=== PATIENT | female | born 1945 | race Hispanic/Latino ===

== ENCOUNTER 2019-04-18 16:14 | Emergency (ER) | payer OTHER ==
[~2019-04-18] VITALS: Ht 162.6 cm; Wt 69.9 kg
[2019-04-18 19:18] VITALS: BP 134/60
== END 2019-04-18 19:20 | disposition home or self-care (01) ==
LOC: ER 16:14
DX: R22.2 Localized swelling, mass and lump, trunk (principal); K46.9 Unspecified abdominal hernia without obstruction or gangrene
CPT/HCPCS: 99282

== ENCOUNTER 2019-06-19 18:09 | Emergency (ER) | payer OTHER ==
[~2019-06-19] VITALS: Ht 162.6 cm; Wt 69.9 kg
[2019-06-19 19:02] LABS: BASOPHILS % 0.4 % (0.0-1.0); EOSINOPHILS # (AUTO) 0.1 (0.0-0.4); EOSINOPHILS % 0.9 % (0.0-6.0); HEMATOCRIT 37.7 % (34.2-44.1); HEMOGLOBIN 12.2 g/dL (12.0-16.0); LYMPHOCYTES # (AUTO) 1.3 (1.0-3.2); LYMPHOCYTES % 24.6 % (18.0-39.1); MEAN CORPUSCULAR HEMOGLOBIN 27.3 pg (28-32); MEAN CORPUSCULAR HGB CONC 32.4 g/dL (31-35); MEAN CORPUSCULAR VOLUME 84.3 fL (81-99); MONOCYTES # (AUTO) 0.3 (0.2-0.8); MONOCYTES % 6.4 % (4.4-11.3); NEUTROPHILS # (AUTO) 3.6 (2.1-6.9); NEUTROPHILS % 67.3 % (38.7-80.0); PLATELET COUNT 203 x10e3/uL (140-360); RED BLOOD COUNT 4.47 x10e6/uL (3.6-5.1); RED CELL DISTRIBUTION WIDTH 14.5 % (11.7-14.4)
[2019-06-19 19:12] LABS: INR 0.96; PARTIAL THROMBOPLASTIN TIME 24.6 seconds (23.8-35.5); PROTHROMBIN TIME 13.3 seconds (11.9-14.5)
--- NOTE | 2019-06-19 19:20 | Diagnostic Imaging Report ---
Exam: Head CT without contrast History: Dizziness, nausea Comparison studies: None Technique: Axial images were obtained from the skull base to the vertex. Coronal and sagittal images reconstructed from the axial data. Dose modulation, iterative reconstruction, and/or weight based adjustment of the mA/kV was utilized to reduce the radiation dose to as low as reasonably achievable. Radiation dose: Total DLP: 921 mGy*cm. Estimated effective dose: DLP x 0.015 Intravenous contrast: None Findings: Scalp: No abnormalities. Bones: No fractures, blastic or lytic lesions. Brain sulci: Appropriate for age. Ventricles: Normal in size and configuration. No hydrocephalus. Extra-axial spaces: No masses, no fluid collection. Parenchyma: No abnormal densities. No masses, acute hemorrhage, acute or chronic vascular insults. Sellar/suprasellar region: Mostly CSF of sella, nonspecific finding. Craniocervical junction: Patent foramen magnum. No Chiari one malformation. Incidental findings: Atherosclerotic calcifications in the carotid siphons an in the left intradural vertebral artery. IMPRESSION: No acute abnormalities. Signed by: Dr. Jesus Daniels M.D. on 06/19/2019 7:17 PM
[2019-06-19 19:23] LABS: ALANINE AMINOTRANSFERASE 12 IU/L (0-55); ALBUMIN 3.4 g/dL (3.5-5.0); ALKALINE PHOSPHATASE 91 IU/L (40-150); ANION GAP 15.1 mmol/L (8-16); BLOOD UREA NITROGEN 12 mg/dL (7-26); BUN/CREATININE RATIO 16 (6-25); CARBON DIOXIDE 22 mmol/L (22-29); CHLORIDE 105 mmol/L (98-107); CREATINE KINASE 48 IU/L (29-168); CREATININE, SERUM 0.73 mg/dL (0.57-1.11); EST GLOMERULAR FILTRATION RATE > 60 ML/MIN (60-); GLUCOSE 107 mg/dL (74-118); MAGNESIUM 1.8 MG/DL (1.3-2.1); POTASSIUM 4.1 mmol/L (3.5-5.1); SODIUM 138 mmol/L (136-145)
[2019-06-19 19:42] LABS: BILIRUBIN,URINE NEGATIVE (NEGATIVE); CLARITY,URINE SL CLOUDY (CLEAR); COLOR,URINE YELLOW (YELLOW); KETONES,URINE NEGATIVE (NEGATIVE); LEUKOCYTE ESTERASE ,URINE TRACE (NEGATIVE); NITRITE,URINE NEGATIVE (NEGATIVE); PROTEIN,URINE DIPSTICK NEGATIVE (NEGATIVE); URINE UROBILINOGEN 0.2 mg/dL (0.2 - 1)
[2019-06-19 19:54] LABS: EPITHELIAL CELLS,URINE RARE /LPF; WBC,URINE (MAN) 0-5 /HPF (0-5)
--- NOTE | 2019-06-19 19:59 | Diagnostic Imaging Report ---
Examination: Single AP view of the chest. COMPARISON: None. INDICATION: Shortness of breath, dizziness, nausea IMPRESSION: 1. Lines and Tubes: None 2. Lungs are well-inflated and grossly clear. No consolidation or effusion. 3. Cardiomediastinal silhouette is normal. Pulmonary vasculature is normal. 4. No acute bony abnormalities. Signed by: Dr. Meño Cormier M.D. on 06/19/2019 7:55 PM
[2019-06-19] MEDS ORDERED: AZITHROMYCIN250 MG PO (20:34)
[2019-06-20 01:56] VITALS: BP 134/76
--- OUTSIDE RECORDS SUMMARY | 2019-06-27 11:32 | XMS REPORT ---
Author Author [facility] Address Unknown Phone Unavailable Care Team Providers Care Trimmer Climber Name Role Phone UNKNOWN, REFFERING PP Unavailable COLLIN CAPUTO Unavailable Unavailable Prosper BARRAZA Unavailable Unavailable GREENLANDIC, Yury MIRELES Unavailable Unavailable Problems This patient has no known problems. Allergies, Adverse Reactions, Alerts This patient has no known allergies or adverse reactions. Medications This patient has no known medications. Results Test Description Test Time Test Comments Text Results Atomic Results Result Comments CHEST SINGLE (PORTABLE) 2019-06-19 19:55:00 [place] [address] Patient Name: KATELIN GONZALES MR #: [id number] : 1945 Age/Sex: 74/F Req #: [id number] Adm Physician: Ordered by: YUNG RYAN PROCESS TRAINER Report #: [id number] Location: ER Room/Bed: Procedure: [id number] DX/CHEST SINGLE (PORTABLE) Exam Date: 06/19/19 Exam Time: 1850 REPORT STATUS: Signed Examination: Single AP view of the chest. COMPAR GARETH: None. INDICATION: Shortness of breath, dizziness, nausea IMPRESSION: 1. Lines and Tubes: None 2. Lungs are well-inflated and grossly clear. No consolidation or effusion. 3. Cardiomediastinal silhouette is normal. Pulmonary vasculature is normal. 4. No acute bony abnormalities. Signed by: Dr. Matthew Cormier M.D. on 06/19/2019 7:55 PM Dictated By: MATTHEW CORMIER MD 54 Transcribed By: JYOTI on 06/19/191954 COPY TO: YUNG RYAN NP CT BRAIN WO 2019-06-19 19:14:00 [place] [address] Patient Name: KATELIN GONZALES MR #: [id number] : 1945 Age/Sex: 74/F Req #: [id number] Adm Physician: Ordered by: YUNG RYAN NP Report #: [id number] Location: Room/Bed: Procedure: [id number] CT/CT BRAIN WO Exam Date: 06/19/19 Exam Time: 1850 REPORT STATUS: Signed Exam: Head CT without contrast History: Dizziness, nausea Comparison studies: None Technique: Axial images were obtained from the skull base to the vertex. Coronal and sagittal images reconstructed from the axial data. Dose modulation, iterative reconstruction, and/or weight based adjustment of the mA/kV was utilized to reduce the radiation dose to as low as reasonably achievable. Radiation dose: Total DLP: 921 mGy*cm. Estimated effective dose: DLP x 0.015 Intravenous contrast: None Findings: Scalp: No abnormalities. Bones: No fractures, blastic or lytic lesions. Brain sulci: Appropriate for age. Ventricles: Normal in size and configuration. No hydrocephalus. Extra-axial spaces: No masses, no fluid collection. Parenchyma: No abnormal densities. No masses, acute hemorrhage, acute or chronic vascular insults. Sellar/suprasellar region: Mostly CSF of sella, nonspecific finding. Craniocervical junction: Patent foramen magnum. No Chiari one malformation. Incidental findings: Athe rosclerotic calcifications in the carotid siphons an in the left intradural vertebral artery. IMPRESSION: No acute abnormalities. Signed by: Dr. Sharlene Daniels M.D. on 06/19/2019 7:17 PM Dictated By: SHARLENE DANIELS MD 16 Transcribed By: JYOTI on 06/19/191916 COPY TO: YUNG RYAN NP POC Glucose, Blood 2016-12-13 10:29:00 POC Glucose (test code=POCGLUC) 113 mg/dL 70-115 If you consider your patient critically ill, the Dylon Accu-Chek InformII metershould not be used for Glucose determinations.Draw a venous Glucose and send to the Main Lab for Analysis. POC Glucose, [id number] 16:48:00* Test Item Value Reference Range Comments POC Glucose (test code=POCGLUC) 119 mg/dL 70-115 Notify RN or MDIf you consider your patient critically ill, the Dylon Accu-Chek InformII metershould not be used for Glucose determinations.Draw a venous Glucose and send to the Main Lab for Analysis. POC Glucose, [id number] 08:08:00* Test Item Value Reference Range Comments POC Glucose (test code=POCGLUC) 105 mg/dL 70-115 Notify RN or MDIf you consider your patient critically ill, the Dylon Accu-Chek InformII metershould not be used for Glucose determinations.Draw a venous Glucose and send to the Main Lab for Analysis. POC Glucose, [id number] 20:18:00* Test Item Value Reference Range Comments POC Glucose (test code=POCGLUC) 102 mg/dL 70-115 Notify RN or MDIf you consider your patient critically ill, the Dylon Accu-Chek InformII metershould not be used for Glucose determinations.Draw a venous Glucose and send to the Main Lab for Analysis. POC Glucose, [id number] 11:14:00* Test Item Value Reference Range Comments POC Glucose (test code=POCGLUC) 122 mg/dL 70-115 Notify RN or MDIf you consider your patient critically ill, the Dylon Accu-Chek InformII metershould not be used for Glucose determinations.Draw a venous Glucose and send to the Main Lab for Analysis. POC Glucose, [id number] 07:31:00* Test Item Value Reference Range Comments POC Glucose (test code=POCGLUC) 93 mg/dL 70-115 If you consider your patient critically ill, the Dylon Accu-Chek InformII metershould not be used for Glucose determinations.Draw a venous Glucose and send to the Main Lab for Analysis. RBC, Crossmatch 00:13:00* Test Item Value Reference Range Comments Product 1 Code (test code=PRODCODE1) E4531 Unit 1 ID (test code=UNITID1) [id number] Unit 1 ABO (test code=UNITABO1) A Unit 1 Rh (test code=UNITRH1) POS Unit 1 Interp (test code=UNITINTERP1) Compatible Unit 1 Status (test code=UNITSTAT1) RE Product 2 Code (test code=PRODCODE2) E0336 Unit 2 ID (test code=UNITID2) [id number] Unit 2 ABO (test code=UNITABO2) A Unit 2 Rh (test code=UNITRH2) POS Unit 2 Interp (test code=UNITINTERP2) Compatible Unit 2 Status (test code=UNITSTAT2) RE POC Glucose, [id number] 21:23:00* Test Item Value Reference Range Comments POC Glucose (test code=POCGLUC) 98 mg/dL 70-115 If you consider your patient critically ill, the Dylon Accu-Chek InformII metershould not be used for Glucose determinations.Draw a venous Glucose and send to the Main Lab for Analysis. POC Glucose, [id number] 16:55:00* Test Item Value Reference Range Comments POC Glucose (test code=POCGLUC) 105 mg/dL 70-115 Notify RN or MDIf you consider your patient critically ill, the Dylon Accu-Chek InformII metershould not be used for Glucose determinations.Draw a venous Glucose and send to the Main Lab for Analysis. POC Glucose, [id number] 12:32:00* Test Item Value Reference Range Comments POC Glucose (test code=POCGLUC) 95 mg/dL 70-115 Notify RN or MDIf you consider your patient critically ill, the Dylon Accu-Chek InformII metershould not be used for Glucose determinations.Draw a venous Glucose and send to the Main Lab for Analysis. POC Glucose, [id number] 08:14:00* Test Item Value Reference Range Comments POC Glucose (test code=POCGLUC) 99 mg/dL 70-115 Notify RN or MDIf you consider your patient critically ill, the Dylon Accu-Chek InformII metershould not be used for Glucose determinations.Draw a venous Glucose and send to the Main Lab for Analysis. POC Glucose, [id number] 20:36:00* Test Item Value Reference Range Comments POC Glucose (test code=POCGLUC) 109 mg/dL 70-115 Notify RN or MDIf you consider your patient critically ill, the Dylon Accu-Chek InformII metershould not be used for Glucose determinations.Draw a venous Glucose and send to the Main Lab for Analysis. POC Glucose, [id number] 17:08:00* Test Item Value Reference Range Comments POC Glucose (test code=POCGLUC) 121 mg/dL 70-115 Notify RN or MDIf you consider your patient critically ill, the Dylon Accu-Chek InformII metershould not be used for Glucose determinations.Draw a venous Glucose and send to the Main Lab for Analysis. POC Glucose, [id number] 12:27:00* Test Item Value Reference Range Comments POC Glucose (test code=POCGLUC) 109 mg/dL 70-115 Notify RN or MDIf you consider your patient critically ill, the Dylon Accu-Chek InformII metershould not be used for Glucose determinations.Draw a venous Glucose and send to the Main Lab for Analysis. POC Glucose, [id number] 08:37:00* Test Item Value Reference Range Comments POC Glucose (test code=POCGLUC) 108 mg/dL 70-115 Notify RN or MDIf you consider your patient critically ill, the Dylon Accu-Chek InformII metershould not be used for Glucose determinations.Draw a venous Glucose and send to the Main Lab for Analysis. [id number] 07:44:00* Test Item Value Reference Range Comments Phosphorus (test code=PO4) 3.1 mg/dL 2.70-4.50 Basic Metabolic [id number] 07:43:00* Test Item Value Reference Range Comments Sodium (test code=NA) 137 mmol/L 135-145 Potassium (test code=K) 4.0 mmol/L 3.5-5.1 Chloride (test code=CL) 103 mmol/L 98-105 Carbon Dioxide (test code=CO2) 24 mmol/L 22-29 Glucose (test code=GLU) 118 mg/dL 70-115 Blood Urea Nitrogen (test code=BUN) 10 mg/dL 8-23 Creatinine (test code=CREAT) 0.5 mg/dL 0.5-0.9 Calcium (test code=CA) 8.2 mg/dL 8.3-10.5 BUN/Creatinine Ratio (test code=BCRATIO) 20.0 Anion Gap (test code=AGAP) 10 mmol/L 7-16 Estimated GFR (test code=GFR) >60 mL/min/1.73m2 eGFR (estimated Glomerular Filtration Rate) is an estimated value,calculated from the patient's serum creatinine using the MDRD equation.It is NOT the patient's actual GFR. The eGFR provides a more clinicallyuseful measure of kidney disease than serum creatinine alone.This calculation takes sex and race into account, if the informationis provided. If the race is not provided, and the patient isAfrican-Citizen Of [place], multiply by 1.212. If sex is not provided, and thepatient is female, multiply by 0.742. Results for patients <18 years ofage have not been validated by the MDRD study and should be interpretedwith caution.eGFR Result Interpretation:eGFR > or=60 is in the Normal RangeeGFR < 60 may mean kidney diseaseeGFR < 15 may mean kidney failureRanges recommended by the National Kidney Foundat ion,http://nkdep.nih.gov Magnesium, [id number] 07:43:00* Test Item Value Reference Range Comments Magnesium (test code=MG) 1.8 mg/dL 1.7-2.5 CBC with [id number] 07:38:00* Test Item Value Reference Range Comments WBC (test code=WBC) 5.7 K/cumm 4.4-10.5 RBC (test code=RBC) 4.09 M/cumm 3.75-5.20 Hemoglobin (test code=HGB) 10.6 gm/dL 12.2-14.8 Hematocrit (test code=HCT) 34.9 % 36.5-44.4 MCV (test code=MCV) 85.4 fL 80-100 MCH (test code=MCH) 25.9 pg 27.0-32.5 MCHC (test code=MCHC) 30.3 g/dL 32.0-37.5 RDW (test code=RDW) 15.8 % 11.5-14.5 Platelet Count (test code=PLTCT) 306 K/cumm 140-440 MPV (test code=MPV) 8.2 fL Diff Method (test code=DIFFM) Auto Neutrophil (test code=NEUT) 68.4 % 36-70 Lymphocyte (test code=LYMPH) 21.2 % 12-44 Monocyte (test code=MONO) 6.6 % 0-11 Eosinophil (test code=EOS) 3.5 % 0-7 Basophil (test code=BASO) 0.3 % 0-2 Neutro Abs (test code=ANEUT) 3.9 K/cumm 1.6-7.4 Lymph Abs (test code=ALYMPH) 1.2 K/cumm 0.5-4.6 Ransom Abs (test code=AMONO) 0.4 K/cumm 0.0-1.2 Eos Abs (test code=AEOS) 0.20 K/cumm 0.00-0.74 Baso Abs (test code=ABASO) 0.0 K/cumm 0.00-0.21 Hypochromic (test code=HYPO) Slight POC Glucose, [id number] 20:59:00* Test Item Value Reference Range Comments POC Glucose (test code=POCGLUC) 109 mg/dL 70-115 Notify RN or MDIf you consider your patient critically ill, the Dylon Accu-Chek InformII metershould not be used for Glucose determinations.Draw a venous Glucose and send to the Main Lab for Analysis. POC Glucose, [id number] 16:58:00* Test Item Value Reference Range Comments POC Glucose (test code=POCGLUC) 106 mg/dL 70-115 Notify RN or MDIf you consider your patient critically ill, the Dylon Accu-Chek InformII metershould not be used for Glucose determinations.Draw a venous Glucose and send to the Main Lab for Analysis. POC Glucose, [id number] 12:30:00* Test Item Value Reference Range Comments POC Glucose (test code=POCGLUC) 108 mg/dL 70-115 Notify RN or MDIf you consider your patient critically ill, the Dylon Accu-Chek InformII metershould not be used for Glucose determinations.Draw a venous Glucose and send to the Main Lab for Analysis. POC Glucose, [id number] 08:36:00* Test Item Value Reference Range Comments POC Glucose (test code=POCGLUC) 107 mg/dL 70-115 Notify RN or MDIf you consider your patient critically ill, the Dylon Accu-Chek InformII metershould not be used for Glucose determinations.Draw a venous Glucose and send to the Main Lab for Analysis. Antibody Screen - [id number] 16:28:00* Test Item Value Reference Range Comments Antibody Screen (test code=ABSCR) Negative Blood Type and [id number] 16:28:00* Test Item Value Reference Range Comments ABO type (test code=ABO) A Rh Type (test code=RH) Positive CBC with [id number] 15:43:00* Test Item Value Reference Range Comments WBC (test code=WBC) 6.8 K/cumm 4.4-10.5 RBC (test code=RBC) 5.15 M/cumm 3.75-5.20 Hemoglobin (test code=HGB) 13.0 gm/dL 12.2-14.8 Hematocrit (test code=HCT) 42.3 % 36.5-44.4 MCV (test code=MCV) 82.1 fL 80-100 MCH (test code=MCH) 25.2 pg 27.0-32.5 MCHC (test code=MCHC) 30.7 g/dL 32.0-37.5 RDW (test code=RDW) 16.2 % 11.5-14.5 Platelet Count (test code=PLTCT) 281 K/cumm 140-440 MPV (test code=MPV) 8.6 fL Diff Method (test code=DIFFM) Auto Neutrophil (test code=NEUT) 78.0 % 36-70 Lymphocyte (test code=LYMPH) 13.3 % 12-44 Monocyte (test code=MONO) 6.7 % 0-11 Eosinophil (test code=EOS) 1.7 % 0-7 Basophil (test code=BASO) 0.3 % 0-2 Neutro Abs (test code=ANEUT) 5.3 K/cumm 1.6-7.4 Lymph Abs (test code=ALYMPH) 0.9 K/cumm 0.5-4.6 Ransom Abs (test code=AMONO) 0.5 K/cumm 0.0-1.2 Eos Abs (test code=AEOS) 0.12 K/cumm 0.00-0.74 Baso Abs (test code=ABASO) 0.0 K/cumm 0.00-0.21 Hypochromic (test code=HYPO) Slight Prothrombin [id number] 15:43:00* Test Item Value Reference Range Comments PT (test code=PT) 13.30 seconds 9.78-13.35 INR (test code=INR) 1.17 Ratio 0.6-1.2 Partial Thromboplastin [id number] 15:43:00* Test Item Value Reference Range Comments aPTT (test code=PTT) 26.80 seconds 24.39-37.25 Comprehensive Metabolic [id number] 15:43:00* Test Item Value Reference Range Comments Sodium (test code=NA) 137 mmol/L 135-145 Potassium (test code=K) 3.9 mmol/L 3.5-5.1 Chloride (test code=CL) 98 mmol/L 98-105 Carbon Dioxide (test code=CO2) 25 mmol/L 22-29 Glucose (test code=GLU) 107 mg/dL 70-115 Blood Urea Nitrogen (test code=BUN) 13 mg/dL 8-23 Creatinine (test code=CREAT) 0.5 mg/dL 0.5-0.9 Calcium (test code=CA) 8.8 mg/dL 8.3-10.5 Prot Total (test code=TP) 6.6 g/dL 6.4-8.3 Albumin (test code=ALB) 3.3 g/dL 3.5-5.2 A/G Ratio (test code=AGRATIO) 1.0 Ratio Globulin (test code=GLOB) 3.3 2.9-3.1 Bili Total (test code=TBIL) 0.4 mg/dL 0.1-0.9 Alk Phos (test code=APHOS) 84 U/L 35-104 AST (test code=AST) 15 U/L 1-32 ALT (test code=ALT) 14 U/L 1-33 BUN/Creatinine Ratio (test code=BCRATIO) 26.0 Anion Gap (test code=AGAP) 14 mmol/L 7-16 Estimated GFR (test code=GFR) >60 mL/min/1.73m2 eGFR (estimated Glomerular Filtration Rate) is an estimated value,calculated from the patient's serum creatinine using the MDRD equation.It is NOT the patient's actual GFR. The eGFR provides a more clinicallyuseful measure of kidney disease than serum creatinine alone.This calculation takes sex and race into account, if the informationis provided. If the race is not provided, and the patient isAfrican-Citizen Of [place], multiply by 1.212. If sex is not provided, and thepatient is female, multiply by 0.742. Results for patients <18 years ofage have not been validated by the MDRD study and should be interpretedwith caution.eGFR Result Interpretation:eGFR > or=60 is in the Normal RangeeGFR < 60 may mean kidney diseaseeGFR < 15 may mean kidney failureRanges recommended by the National Kidney Foundat ion,http://nkdep.nih.gov [id number] 15:43:00* Test Item Value Reference Range Comments Lipase (test code=LIP) 19 U/L 13-60 Eaa-[id number] 15:43:00* Test Item Value Reference Range Comments NT ProBnp (test code=PBNP) 76 pg/mL 0-124 CK [id number] 15:43:00* Test Item Value Reference Range Comments CK (test code=CK) 20 U/L 26-192 CKMB (test code=CKMB) 1.0 ng/mL 0.0-2.8 CKMB% (test code=CKMBP) 5.0 % 0.0-3.4 CK [id number] 15:43:00* Test Item Value Reference Range Comments CK (test code=CK) 20 U/L 26-192 Troponin [id number] 15:43:00* Test Item Value Reference Range Comments Troponin T (test code=MIRTA) 0.010 ng/mL 0.000-0.090 Urinalysis [id number] 15:43:00* Test Item Value Reference Range Comments Color (test code=COLOR) Hilda Yellow,Straw,Pl yellow Clarity (test code=CLAR) Clear Clear Specific Beasley (test code=SPGR) 1.029 1.001-1.035 pH (test code=PH) 6.5 5.0-9.0 Ketone (test code=KET) 150 mg/dL Negative Glucose (test code=GLUCUR) Negative mg/dL Negative Protein (test code=PROT) 25 mg/dL Negative Bilirubin (test code=BILI) 1+ mg/dL Negative Occult Blood (test code=UDOB) Negative Negative Urobilinogen (test code=UROB) 8.0 mg/dL 0.2-1.0 Nitrite (test code=NIT) Negative Negative Leuk Esterase (test code=LEUK) Negative Negative Ictotest (test code=ICTOTEST) Confirmed Negative Negative,Confirmed Negative Micros Exam (test code=MEXAM) Indicated Epithelial Cells (test code=EPI) 3-5 /LPF 0-30 WBC, Urine (test code=UWBC) 0-5 /HPF 0-5 RBC, Urine (test code=URBC) None Seen /HPF 0-5 Mucous, Urine (test code=UMUC) Trace /HPF Bacteria (test code=BACT) Few /HPF Blood Gas+Lytes+Glu+Ca+Hgb+Hct+[id number] 13:34:00* Test Item Value Reference Range Comments pH, Blood Gas (test code=BGPH) 7.510 pH Units 7.35-7.45 pCO2 (test code=PCO2) 32.6 mm Hg 35-45 pO2 (test code=PO2) 77.0 mm Hg 80-100 Bicarbonate (test code=HCO3) 26.0 mmol/L 22.0-26.0 Base Excess (test code=BE) 2.8 mmol/L O2 Saturation (test code=O2SAT) 96.5 % 80.0-100.0 Sodium, Blood Gas (test code=BGNA) 138 mmol/L 135-145 Potassium, Blood Gas (test code=BGK) 3.6 mmol/L 3.5-4.5 Chloride, Blood Gas (test code=BGCL) 104 mmol/L 98-105 Calcium, Ionized, Blood Gas (test code=BGCAI) 1.15 mmol/L 1.00-1.50 Glucose, Blood Gas (test code=BGGLU) 109 mg/dL 75-115 tHB (test code=RTHB) 11.5 gm/dL 12.2-17.4 Hematocrit, Blood Gas (test code=BGHCT) 35.2 % 34.0-52.0 O2Hb (test code=RO2HB) 95 80-100 Carboxyhemoglobin (test code=CARHGB) 1.1 % 0.0-20.0 Methemoglobin (test code=METHGB) 1.0 % 0.0-20.0 FIO2 % (test code=FIO2) 21 % Patient Temperature (test code=PTTEMP) 37.0 Degrees Celcius Comment (test code=COMMENT) 21%alokveriviedrblvtovernmd@1332rg Puncture Site (test code=PUNSITE) Radial. R Drawing Tech ID (test code=DRAWTECH) dagoberto iPAP (test code=IPAP) 0 cmH2O Respiratory Rate (test code=RESP RATE) 20 Lactic Acid, Blood Gas (test code=BGLA) 0.8 mmol/L Magnesium, [id number] 06:09:00* Test Item Value Reference Range Comments Magnesium (test code=MG) 1.7 mg/dL 1.7-2.5 Basic Metabolic [id number] 06:09:00* Test Item Value Reference Range Comments Sodium (test code=NA) 135 mmol/L 135-145 Potassium (test code=K) 3.9 mmol/L 3.5-5.1 Chloride (test code=CL) 100 mmol/L 98-105 Carbon Dioxide (test code=CO2) 24 mmol/L 22-29 Glucose (test code=GLU) 99 mg/dL 70-115 Blood Urea Nitrogen (test code=BUN) 10 mg/dL 8-23 Creatinine (test code=CREAT) 0.5 mg/dL 0.5-0.9 Calcium (test code=CA) 8.6 mg/dL 8.3-10.5 BUN/Creatinine Ratio (test code=BCRATIO) 20.0 Anion Gap (test code=AGAP) 11 mmol/L 7-16 Estimated GFR (test code=GFR) >60 mL/min/1.73m2 eGFR (estimated Glomerular Filtration Rate) is an estimated value,calculated from the patient's serum creatinine using the MDRD equation.It is NOT the patient's actual GFR. The eGFR provides a more clinicallyuseful measure of kidney disease than serum creatinine alone.This calculation takes sex and race into account, if the informationis provided. If the race is not provided, and the patient isAfrican-Citizen Of [place], multiply by 1.212. If sex is not provided, and thepatient is female, multiply by 0.742. Results for patients <18 years ofage have not been validated by the MDRD study and should be interpretedwith caution.eGFR Result Interpretation:eGFR > or=60 is in the Normal RangeeGFR < 60 may mean kidney diseaseeGFR < 15 may mean kidney failureRanges recommended by the National Kidney Foundat ion,http://nkdep.nih.gov [id number] 06:09:00* Test Item Value Reference Range Comments Phosphorus (test code=PO4) 4.2 mg/dL 2.70-4.50 CBC with [id number] 05:53:00* Test Item Value Reference Range Comments WBC (test code=WBC) 6.4 K/cumm 4.4-10.5 RBC (test code=RBC) 4.18 M/cumm 3.75-5.20 Hemoglobin (test code=HGB) 10.7 gm/dL 12.2-14.8 Hematocrit (test code=HCT) 33.7 % 36.5-44.4 MCV (test code=MCV) 80.8 fL 80-100 MCH (test code=MCH) 25.6 pg 27.0-32.5 MCHC (test code=MCHC) 31.7 g/dL 32.0-37.5 RDW (test code=RDW) 15.6 % 11.5-14.5 Platelet Count (test code=PLTCT) 271 K/cumm 140-440 MPV (test code=MPV) 7.2 fL Diff Method (test code=DIFFM) Auto Neutrophil (test code=NEUT) 73.9 % 36-70 Lymphocyte (test code=LYMPH) 15.6 % 12-44 Monocyte (test code=MONO) 8.0 % 0-11 Eosinophil (test code=EOS) 2.3 % 0-7 Basophil (test code=BASO) 0.2 % 0-2 Neutro Abs (test code=ANEUT) 4.7 K/cumm 1.6-7.4 Lymph Abs (test code=ALYMPH) 1.0 K/cumm 0.5-4.6 Ransom Abs (test code=AMONO) 0.5 K/cumm 0.0-1.2 Eos Abs (test code=AEOS) 0.15 K/cumm 0.00-0.74 Baso Abs (test code=ABASO) 0.0 K/cumm 0.00-0.21 Magnesium, [id number] 07:23:00* Test Item Value Reference Range Comments Magnesium (test code=MG) 1.7 mg/dL 1.7-2.5 Basic Metabolic [id number] 07:23:00* Test Item Value Reference Range Comments Sodium (test code=NA) 139 mmol/L 135-145 Potassium (test code=K) 4.1 mmol/L 3.5-5.1 Chloride (test code=CL) 105 mmol/L 98-105 Carbon Dioxide (test code=CO2) 23 mmol/L 22-29 Glucose (test code=GLU) 150 mg/dL 70-115 Blood Urea Nitrogen (test code=BUN) 7 mg/dL 8-23 Creatinine (test code=CREAT) 0.4 mg/dL 0.5-0.9 Calcium (test code=CA) 8.7 mg/dL 8.3-10.5 BUN/Creatinine Ratio (test code=BCRATIO) 17.5 Anion Gap (test code=AGAP) 11 mmol/L 7-16 Estimated GFR (test code=GFR) >60 mL/min/1.73m2 eGFR (estimated Glomerular Filtration Rate) is an estimated value,calculated from the patient's serum creatinine using the MDRD equation.It is NOT the patient's actual GFR. The eGFR provides a more clinicallyuseful measure of kidney disease than serum creatinine alone.This calculation takes sex and race into account, if the informationis provided. If the race is not provided, and the patient isAfrican-Citizen Of [place], multiply by 1.212. If sex is not provided, and thepatient is female, multiply by 0.742. Results for patients <18 years ofage have not been validated by the MDRD study and should be interpretedwith caution.eGFR Result Interpretation:eGFR > or=60 is in the Normal RangeeGFR < 60 may mean kidney diseaseeGFR < 15 may mean kidney failureRanges recommended by the National Kidney Foundat ion,http://nkdep.nih.gov CBC with Pkhbkkhuwlkz8024-15-39 07:12:00* Test Item Value Reference Range Comments WBC (test code=WBC) 12.0 K/cumm 4.4-10.5 RBC (test code=RBC) 4.17 M/cumm 3.75-5.20 Hemoglobin (test code=HGB) 11.0 gm/dL 12.2-14.8 Hematocrit (test code=HCT) 34.4 % 36.5-44.4 MCV (test code=MCV) 82.6 fL 80-100 MCH (test code=MCH) 26.4 pg 27.0-32.5 MCHC (test code=MCHC) 31.9 g/dL 32.0-37.5 RDW (test code=RDW) 16.0 % 11.5-14.5 Platelet Count (test code=PLTCT) 295 K/cumm 140-440 MPV (test code=MPV) 8.7 fL Diff Method (test code=DIFFM) Auto Neutrophil (test code=NEUT) 85.7 % 36-70 Lymphocyte (test code=LYMPH) 8.8 % 12-44 Monocyte (test code=MONO) 5.2 % 0-11 Eosinophil (test code=EOS) 0.2 % 0-7 Basophil (test code=BASO) 0.2 % 0-2 Neutro Abs (test code=ANEUT) 10.3 K/cumm 1.6-7.4 Lymph Abs (test code=ALYMPH) 1.1 K/cumm 0.5-4.6 Ransom Abs (test code=AMONO) 0.6 K/cumm 0.0-1.2 Eos Abs (test code=AEOS) 0.02 K/cumm 0.00-0.74 Baso Abs (test code=ABASO) 0.0 K/cumm 0.00-0.21 Magnesium, [id number] 06:39:00* Test Item Value Reference Range Comments Magnesium (test code=MG) 1.9 mg/dL 1.7-2.5 Basic Metabolic [id number] 06:39:00* Test Item Value Reference Range Comments Sodium (test code=NA) 139 mmol/L 135-145 Potassium (test code=K) 3.9 mmol/L 3.5-5.1 Chloride (test code=CL) 103 mmol/L 98-105 Carbon Dioxide (test code=CO2) 21 mmol/L 22-29 Glucose (test code=GLU) 99 mg/dL 70-115 Blood Urea Nitrogen (test code=BUN) 8 mg/dL 8-23 Creatinine (test code=CREAT) 0.5 mg/dL 0.5-0.9 Calcium (test code=CA) 8.7 mg/dL 8.3-10.5 BUN/Creatinine Ratio (test code=BCRATIO) 16.0 Anion Gap (test code=AGAP) 15 mmol/L 7-16 Estimated GFR (test code=GFR) >60 mL/min/1.73m2 eGFR (estimated Glomerular Filtration Rate) is an estimated value,calculated from the patient's serum creatinine using the MDRD equation.It is NOT the patient's actual GFR. The eGFR provides a more clinicallyuseful measure of kidney disease than serum creatinine alone.This calculation takes sex and race into account, if the informationis provided. If the race is not provided, and the patient isAfrican-Citizen Of [place], multiply by 1.212. If sex is not provided, and thepatient is female, multiply by 0.742. Results for patients <18 years ofage have not been validated by the MDRD study and should be interpretedwith caution.eGFR Result Interpretation:eGFR > or=60 is in the Normal RangeeGFR < 60 may mean kidney diseaseeGFR < 15 may mean kidney failureRanges recommended by the National Kidney Foundat ion,http://nkdep.nih.gov [id number] 06:39:00* Test Item Value Reference Range Comments Phosphorus (test code=PO4) 4.3 mg/dL 2.70-4.50 CBC with [id number] 06:07:00* Test Item Value Reference Range Comments WBC (test code=WBC) 4.7 K/cumm 4.4-10.5 RBC (test code=RBC) 4.23 M/cumm 3.75-5.20 Hemoglobin (test code=HGB) 10.8 gm/dL 12.2-14.8 Hematocrit (test code=HCT) 35.2 % 36.5-44.4 MCV (test code=MCV) 83.3 fL 80-100 MCH (test code=MCH) 25.5 pg 27.0-32.5 MCHC (test code=MCHC) 30.6 g/dL 32.0-37.5 RDW (test code=RDW) 15.9 % 11.5-14.5 Platelet Count (test code=PLTCT) 264 K/cumm 140-440 MPV (test code=MPV) 8.4 fL Diff Method (test code=DIFFM) Auto Neutrophil (test code=NEUT) 63.4 % 36-70 Lymphocyte (test code=LYMPH) 20.3 % 12-44 Monocyte (test code=MONO) 12.1 % 0-11 Eosinophil (test code=EOS) 3.8 % 0-7 Basophil (test code=BASO) 0.4 % 0-2 Neutro Abs (test code=ANEUT) 3.0 K/cumm 1.6-7.4 Lymph Abs (test code=ALYMPH) 1.0 K/cumm 0.5-4.6 Ransom Abs (test code=AMONO) 0.6 K/cumm 0.0-1.2 Eos Abs (test code=AEOS) 0.18 K/cumm 0.00-0.74 Baso Abs (test code=ABASO) 0.0 K/cumm 0.00-0.21 Hypochromic (test code=HYPO) Slight Blood Type and [id number] 14:54:00* Test Item Value Reference Range Comments ABO type (test code=ABO) A Rh Type (test code=RH) Positive Antibody Screen - [id number] 14:54:00* Test Item Value Reference Range Comments Antibody Screen (test code=ABSCR) Negative Partial Thromboplastin [id number] 13:02:00* Test Item Value Reference Range Comments aPTT (test code=PTT) 32.20 seconds 24.39-37.25 Prothrombin [id number] 11:57:00* Test Item Value Reference Range Comments PT (test code=PT) 13.10 seconds 9.78-13.35 INR (test code=INR) 1.15 Ratio 0.6-1.2 [id number] 11:26:00* Test Item Value Reference Range Comments Phosphorus (test code=PO4) 3.8 mg/dL 2.70-4.50 Basic Metabolic [id number] 11:26:00* Test Item Value Reference Range Comments Sodium (test code=NA) 135 mmol/L 135-145 Potassium (test code=K) 4.0 mmol/L 3.5-5.1 Chloride (test code=CL) 100 mmol/L 98-105 Carbon Dioxide (test code=CO2) 22 mmol/L 22-29 Glucose (test code=GLU) 84 mg/dL 70-115 Blood Urea Nitrogen (test code=BUN) 12 mg/dL 8-23 Creatinine (test code=CREAT) 0.5 mg/dL 0.5-0.9 Calcium (test code=CA) 8.7 mg/dL 8.3-10.5 BUN/Creatinine Ratio (test code=BCRATIO) 24.0 Anion Gap (test code=AGAP) 13 mmol/L 7-16 Estimated GFR (test code=GFR) >60 mL/min/1.73m2 eGFR (estimated Glomerular Filtration Rate) is an estimated value,calculated from the patient's serum creatinine using the MDRD equation.It is NOT the patient's actual GFR. The eGFR provides a more clinicallyuseful measure of kidney disease than serum creatinine alone.This calculation takes sex and race into account, if the informationis provided. If the race is not provided, and the patient isAfrican-Citizen Of [place], multiply by 1.212. If sex is not provided, and thepatient is female, multiply by 0.742. Results for patients <18 years ofage have not been validated by the MDRD study and should be interpretedwith caution.eGFR Result Interpretation:eGFR > or=60 is in the Normal RangeeGFR < 60 may mean kidney diseaseeGFR < 15 may mean kidney failureRanges recommended by the National Kidney Foundat ion,http://nkdep.nih.gov Magnesium, [id number] 11:26:00* Test Item Value Reference Range Comments Magnesium (test code=MG) 1.9 mg/dL 1.7-2.5 CBC with [id number] 11:06:00* Test Item Value Reference Range Comments WBC (test code=WBC) 6.4 K/cumm 4.4-10.5 RBC (test code=RBC) 4.19 M/cumm 3.75-5.20 Hemoglobin (test code=HGB) 11.0 gm/dL 12.2-14.8 Hematocrit (test code=HCT) 34.4 % 36.5-44.4 MCV (test code=MCV) 82.2 fL 80-100 MCH (test code=MCH) 26.2 pg 27.0-32.5 MCHC (test code=MCHC) 31.9 g/dL 32.0-37.5 RDW (test code=RDW) 15.9 % 11.5-14.5 Platelet Count (test code=PLTCT) 274 K/cumm 140-440 MPV (test code=MPV) 8.8 fL Diff Method (test code=DIFFM) Auto Neutrophil (test code=NEUT) 66.3 % 36-70 Lymphocyte (test code=LYMPH) 22.3 % 12-44 Monocyte (test code=MONO) 7.9 % 0-11 Eosinophil (test code=EOS) 3.1 % 0-7 Basophil (test code=BASO) 0.4 % 0-2 Neutro Abs (test code=ANEUT) 4.2 K/cumm 1.6-7.4 Lymph Abs (test code=ALYMPH) 1.4 K/cumm 0.5-4.6 Ransom Abs (test code=AMONO) 0.5 K/cumm 0.0-1.2 Eos Abs (test code=AEOS) 0.20 K/cumm 0.00-0.74 Baso Abs (test code=ABASO) 0.0 K/cumm 0.00-0.21 CK [id number] 07:00:00* Test Item Value Reference Range Comments CK (test code=CK) na U/L 26-192 CKMB (test code=CKMB) <1.0 ng/mL 0.0-2.8 CKMB% (test code=CKMBP) No Calc % 0.0-3.4 Unable to calculate due to one or more values out of test measurement range. Troponin [id number] 06:23:00* Test Item Value Reference Range Comments Troponin T (test code=MIRTA) <0.010 ng/mL 0.000-0.090 Thyroid Stimulating Hormone (TSH)2016-11-20 06:23:00* Test Item Value Reference Range Comments TSH (test code=TSH) 2.08 mIU/mL 0.270-4.200 Basic Metabolic [id number] 06:19:00* Test Item Value Reference Range Comments Sodium (test code=NA) 137 mmol/L 135-145 Potassium (test code=K) 4.1 mmol/L 3.5-5.1 Chloride (test code=CL) 105 mmol/L 98-105 Carbon Dioxide (test code=CO2) 23 mmol/L 22-29 Glucose (test code=GLU) 93 mg/dL 70-115 Blood Urea Nitrogen (test code=BUN) 14 mg/dL 8-23 Creatinine (test code=CREAT) 0.5 mg/dL 0.5-0.9 Calcium (test code=CA) 8.5 mg/dL 8.3-10.5 BUN/Creatinine Ratio (test code=BCRATIO) 28.0 Anion Gap (test code=AGAP) 9 mmol/L 7-16 Estimated GFR (test code=GFR) >60 mL/min/1.73m2 eGFR (estimated Glomerular Filtration Rate) is an estimated value,calculated from the patient's serum creatinine using the MDRD equation.It is NOT the patient's actual GFR. The eGFR provides a more clinicallyuseful measure of kidney disease than serum creatinine alone.This calculation takes sex and race into account, if the informationis provided. If the race is not provided, and the patient isAfrican-Citizen Of [place], multiply by 1.212. If sex is not provided, and thepatient is female, multiply by 0.742. Results for patients <18 years ofage have not been validated by the MDRD study and should be interpretedwith caution.eGFR Result Interpretation:eGFR > or=60 is in the Normal RangeeGFR < 60 may mean kidney diseaseeGFR < 15 may mean kidney failureRanges recommended by the National Kidney Foundat ion,http://nkdep.nih.gov Lipid [id number] 06:19:00* Test Item Value Reference Range Comments Cholesterol (test code=CHOL) 108 mg/dL 0-200 Triglycerides (test code=TRIG) 54 mg/dL 9-200 HDL (test code=HDL) 45 mg/dL 50-60 Chol/HDL (test code=CHOLPHDL) 2.4 Ratio 0.0-4.4 LDL, Calculated (test code=LDLC) 52 0-130 (NOTE)RISK OF HEART DISEASEPublished by Citizen Of [place] Heart AssociationAnalyte Optimal Boderline Increased RiskCHOL <200 200-239 >240TRIG <150 150- 199 >200HDL Male: >60 <40HDL Female: >60 <50LDL <100 130-159 >160LDL NEAR OPTIMAL IS 100-129 VLDL (test code=VLDL) 11 mg/dL 5-40 LDL/HDL (test code=LDLPHDL) 1 Magnesium, [id number] 06:19:00* Test Item Value Reference Range Comments Magnesium (test code=MG) 1.9 mg/dL 1.7-2.5 [id number] 06:19:00* Test Item Value Reference Range Comments Phosphorus (test code=PO4) 3.7 mg/dL 2.70-4.50 Glycosylated [id number] 06:15:00* Test Item Value Reference Range Comments HBA1c (test code=HBA1C) 5.0 % 4.8-5.9 CBC with [id number] 06:12:00* Test Item Value Reference Range Comments WBC (test code=WBC) 4.7 K/cumm 4.4-10.5 RBC (test code=RBC) 4.12 M/cumm 3.75-5.20 Hemoglobin (test code=HGB) 10.3 gm/dL 12.2-14.8 Hematocrit (test code=HCT) 33.6 % 36.5-44.4 MCV (test code=MCV) 81.7 fL 80-100 MCH (test code=MCH) 25.0 pg 27.0-32.5 MCHC (test code=MCHC) 30.7 g/dL 32.0-37.5 RDW (test code=RDW) 14.8 % 11.5-14.5 Platelet Count (test code=PLTCT) 253 K/cumm 140-440 MPV (test code=MPV) 8.3 fL Diff Method (test code=DIFFM) Auto Neutrophil (test code=NEUT) 61.9 % 36-70 Lymphocyte (test code=LYMPH) 23.8 % 12-44 Monocyte (test code=MONO) 10.2 % 0-11 Eosinophil (test code=EOS) 3.9 % 0-7 Basophil (test code=BASO) 0.3 % 0-2 Neutro Abs (test code=ANEUT) 2.9 K/cumm 1.6-7.4 Lymph Abs (test code=ALYMPH) 1.1 K/cumm 0.5-4.6 Ransom Abs (test code=AMONO) 0.5 K/cumm 0.0-1.2 Eos Abs (test code=AEOS) 0.18 K/cumm 0.00-0.74 Baso Abs (test code=ABASO) 0.0 K/cumm 0.00-0.21 Hypochromic (test code=HYPO) Slight Urinalysis [id number] 15:11:00* Test Item Value Reference Range Comments Color (test code=COLOR) Yellow Yellow,Straw,Pl yellow Clarity (test code=CLAR) Clear Clear Specific Beasley (test code=SPGR) 1.021 1.001-1.035 pH (test code=PH) 6.5 5.0-9.0 Ketone (test code=KET) 5 mg/dL Negative Glucose (test code=GLUCUR) Negative mg/dL Negative Protein (test code=PROT) Negative mg/dL Negative Bilirubin (test code=BILI) Negative mg/dL Negative Occult Blood (test code=UDOB) Negative Negative Urobilinogen (test code=UROB) 1.0 mg/dL 0.2-1.0 Nitrite (test code=NIT) Negative Negative Leuk Esterase (test code=LEUK) Small Negative Micros Exam (test code=MEXAM) Indicated Epithelial Cells (test code=EPI) 3-5 /LPF 0-30 WBC, Urine (test code=UWBC) 0-5 /HPF 0-5 RBC, Urine (test code=URBC) None Seen /HPF 0-5 Bacteria (test code=BACT) None /HPF Troponin [id number] 14:58:00* Test Item Value Reference Range Comments Troponin T (test code=MIRTA) <0.010 ng/mL 0.000-0.090 CK [id number] 14:58:00* Test Item Value Reference Range Comments CK (test code=CK) 29 U/L 26-192 CKMB (test code=CKMB) <1.0 ng/mL 0.0-2.8 CKMB% (test code=CKMBP) No Calc % 0.0-3.4 Unable to calculate due to one or more values out of test measurement range. Comprehensive Metabolic [id number] 14:58:00* Test Item Value Reference Range Comments Sodium (test code=NA) 139 mmol/L 135-145 Potassium (test code=K) 4.1 mmol/L 3.5-5.1 Chloride (test code=CL) 105 mmol/L 98-105 Carbon Dioxide (test code=CO2) 24 mmol/L 22-29 Glucose (test code=GLU) 108 mg/dL 70-115 Blood Urea Nitrogen (test code=BUN) 14 mg/dL 8-23 Creatinine (test code=CREAT) 0.5 mg/dL 0.5-0.9 Calcium (test code=CA) 9.3 mg/dL 8.3-10.5 Prot Total (test code=TP) 6.6 g/dL 6.4-8.3 Albumin (test code=ALB) 3.5 g/dL 3.5-5.2 A/G Ratio (test code=AGRATIO) 1.1 Ratio Globulin (test code=GLOB) 3.1 2.9-3.1 Bili Total (test code=TBIL) 0.3 mg/dL 0.1-0.9 Alk Phos (test code=APHOS) 60 U/L 35-104 AST (test code=AST) 12 U/L 1-32 ALT (test code=ALT) 7 U/L 1-33 BUN/Creatinine Ratio (test code=BCRATIO) 28.0 Anion Gap (test code=AGAP) 10 mmol/L 7-16 Estimated GFR (test code=GFR) >60 mL/min/1.73m2 eGFR (estimated Glomerular Filtration Rate) is an estimated value,calculated from the patient's serum creatinine using the MDRD equation.It is NOT the patient's actual GFR. The eGFR provides a more clinicallyuseful measure of kidney disease than serum creatinine alone.This calculation takes sex and race into account, if the informationis provided. If the race is not provided, and the patient isAfrican-Citizen [place], multiply by 1.212. If sex is not provided, and thepatient is female, multiply by 0.742. Results for patients <18 years ofage have not been validated by the MDRD study and should be interpretedwith caution.eGFR Result Interpretation:eGFR > or=60 is in the Normal RangeeGFR < 60 may mean kidney diseaseeGFR < 15 may mean kidney failureRanges recommended by the National Kidney Foundat ion,http://nkdep.nih.gov CK [id number] 14:58:00* Test Item Value Reference Range Comments CK (test code=CK) 29 U/L 26-192 CBC with [id number] 14:44:00* Test Item Value Reference Range Comments WBC (test code=WBC) 4.6 K/cumm 4.4-10.5 RBC (test code=RBC) 4.17 M/cumm 3.75-5.20 Hemoglobin (test code=HGB) 10.6 gm/dL 12.2-14.8 Hematocrit (test code=HCT) 33.9 % 36.5-44.4 MCV (test code=MCV) 81.4 fL 80-100 MCH (test code=MCH) 25.4 pg 27.0-32.5 MCHC (test code=MCHC) 31.2 g/dL 32.0-37.5 RDW (test code=RDW) 14.8 % 11.5-14.5 Platelet Count (test code=PLTCT) 242 K/cumm 140-440 MPV (test code=MPV) 7.9 fL Diff Method (test code=DIFFM) Auto Neutrophil (test code=NEUT) 73.6 % 36-70 Lymphocyte (test code=LYMPH) 14.6 % 12-44 Monocyte (test code=MONO) 8.3 % 0-11 Eosinophil (test code=EOS) 3.1 % 0-7 Basophil (test code=BASO) 0.5 % 0-2 Neutro Abs (test code=ANEUT) 3.4 K/cumm 1.6-7.4 Lymph Abs (test code=ALYMPH) 0.7 K/cumm 0.5-4.6 Ransom Abs (test code=AMONO) 0.4 K/cumm 0.0-1.2 Eos Abs (test code=AEOS) 0.14 K/cumm 0.00-0.74 Baso Abs (test code=ABASO) 0.0 K/cumm 0.00-0.21
== END 2019-06-19 21:06 | disposition home or self-care (01) ==
LOC: ER 18:09
DX: R06.09 Other forms of dyspnea (principal); R50.9 Fever, unspecified; R05 Cough; R42 Dizziness and giddiness; R51 Headache; M06.9 Rheumatoid arthritis, unspecified
CPT/HCPCS: 36415; 70450; 71045; 80053; 81001; 82550; 82553; 83735; 84484; 85025; 85610; 85730; 87400; 93005; 99284

== ENCOUNTER 2019-09-13 17:09 | Observation (INO) | payer OTHER ==
[~2019-09-13] VITALS: Ht 157.5 cm; Wt 70.8 kg
[~2019-09-13 17:09] MED LIST: AZITHROMYCIN250 MG PO
--- OUTSIDE RECORDS SUMMARY | 2019-09-13 17:13 | XMS REPORT | Summary of Care ---
Author Author Angelika Carrillo M.A. Unknown Address Unknown Phone Unavailable Care Team Providers Care Training Associate Name Role Phone LAKSHMI Fritz, BHASKAR Unavailable Unavailable GABRIEL Fritz, FIOR Unavailable Unavailable JERI GARCIA MD Unavailable Unavailable GABRIEL ALEXANDRE MT, FIOR Morgan Unavailable Unavailable Unavailable Unavailable Functional Status Name Dates Details Functional status health issues are not documented Status: Name Dates Details Cognitive status health issues are not documented Status: Problems Name Dates Details Preventative health care (V70.0, Z00.00) Status: Active Lower back pain (724.2, M54.5) Status: Active Rheumatoid arthritis (714.0, M06.9) Status: Active Left knee pain (719.46, M25.562) Status: Active Arthritis of left knee (716.96, M17.12) Status: Active Medications Name Dates Details NexIUM 40 MG Oral Capsule Delayed Release TAKE 1 CAPSULE DAILY. Quantity: 30 Active Enalapril Maleate 10 MG Oral Tablet TAKE 1 TABLET DAILY DIRECTED. * Quantity: 90 Refills: 3 Active Ultram TABS TAKE 1 TABLET 4 TIMES DAILY NEEDED FOR PAIN. * Refills: 0 Active Aspirin 81 MG TABS TAKE 1 TABLET DAILY. * Refills: 0 Active Leflunomide 20 MG Oral Tablet TAKE 1 TABLET DAILY * Quantity: 30 Refills: 4 BHASKAR MARTINS M.D. * Start : 12-Dec-2013 Active Celecoxib 100 MG Oral Capsule TAKE 1 CAPSULE TWICE DAILY NEEDED. * Quantity: 60 Refills: 4 BHASKAR MARTINS M.D. * Start : 12-Aug-2014 Active tiZANidine HCl - 4 MG Oral Tablet TAKE 1 TABLET AT BEDTIME. * Quantity: 30 Refills: 4 BHASKAR MARTINS M.D. * Start : 12-Aug-2014 Active Meloxicam 7.5 MG Oral Tablet TAKE 1 TABLET TWICE DAILY AFTER MEALS * Quantity: 60 Refills: 3 BHASKAR MARTINS M.D. * Start : 18-Sep-2014 Active Diclofenac Sodium 1 % Transdermal Gel APPLY TO LOWER EXTREMITIES, 4 GM OF GEL TO AFFECTED AREA 4 TIMES DAILY. DO NOT APPLY MORE THAN 16 GM DAILY TO ANY ONE AFFECTED JOINT. * Quantity: 2 Refills: 3 FIOR RIOS M.D. * Start : 28-Aug-2019 Active 100 GM Tube Omeprazole 20 MG Oral Capsule Delayed Release TAKE 1 CAPSULE DAILY EVERY MORNING BEFORE BREAKFAST. * Quantity: 30 Refills: 3 FIOR RIOS M.D. * Start : 28-Aug-2019 Active Allergies and Adverse Reactions Name Dates Details Vicodin TABS (Allergy) Status: Active Procedures Procedure Dates Details Procedures not documented Immunization Name Dates Details Influenza #1 Lot #: [id number] on: 08-Aug-2013 Social History Name Dates Details - Status: Name Dates Details Never smoker Vital Signs Date Test Result Details [id number] Height 62 in Status: Weight 157.0 lb Status: Body Mass Index Calculated 28.72 kg/m2 Status: Body Surface Area Calculated 1.72 m2 Status: Results Date Description Value Details [id number] [U] XRAY KNEE 4 OR MORE VWS LEFT [id number] XR KNEE 4 OR MORE VWS LEFT Images acquired, not reported on this accession number. Plan of Care Name Dates Details Planned Observations Planned Goals not documented Planned Encounters Cardiology Referral Interventions Provided Medication Changes* Diclofenac Sodium 1 % Transdermal Gel - Start * Omeprazole 20 MG Oral Capsule Delayed Release - Start Labs/Procedures/Imaging* [U] XRAY KNEE 4 OR MORE VWS LEFT [id number]; Done: 28 Aug 2019 Instructions Name Dates Details Instructions not documented Encounters Appointment; FIOR RIOS M.D. Encounter Diagnosis: Problem not documented On: 28-Aug-2019 10:30
[2019-09-13] MEDS ORDERED: TRAMADOL HCL 50 MG TAB PO NR (18:00)
[2019-09-13] MEDS ORDERED: ASPIRIN 81 MG CHEW TAB PO ONE (18:15)
--- NOTE | 2019-09-13 18:18 | Diagnostic Imaging Report ---
EXAMINATION: CHEST SINGLE (PORTABLE) INDICATION: Shortness of breath. COMPARISON: Chest radiograph 06/19/2019. FINDINGS: TUBES and LINES: None. LUNGS: Lungs are moderately inflated. Central vascular congestion. Mild patchy bibasilar opacities, likely atelectasis. There is no evidence of pneumonia or pulmonary edema. PLEURA: No pleural effusion or pneumothorax. HEART AND MEDIASTINUM: The cardiomediastinal silhouette is unremarkable. BONES AND SOFT TISSUES: No acute osseous lesion. Soft tissues are unremarkable. UPPER ABDOMEN: No free air under the diaphragm. IMPRESSION: No acute thoracic abnormality. Signed by: Dr. Breanna Kam MD on 09/13/2019 6:16 PM
[2019-09-13 18:39] LABS: BASOPHILS % 0.4 % (0.0-1.0); EOSINOPHILS % 0.7 % (0.0-6.0); HEMATOCRIT 38.1 % (34.2-44.1); HEMOGLOBIN 11.9 g/dL (12.0-16.0); LYMPHOCYTES # (AUTO) 1.1 (1.0-3.2); LYMPHOCYTES % 21.1 % (18.0-39.1); MEAN CORPUSCULAR HEMOGLOBIN 26.3 pg (28-32); MEAN CORPUSCULAR HGB CONC 31.2 g/dL (31-35); MEAN CORPUSCULAR VOLUME 84.1 fL (81-99); MONOCYTES # (AUTO) 0.4 (0.2-0.8); MONOCYTES % 7.4 % (4.4-11.3); NEUTROPHILS # (AUTO) 3.8 (2.1-6.9); NEUTROPHILS % 69.7 % (38.7-80.0); PLATELET COUNT 246 x10e3/uL (140-360); RED BLOOD COUNT 4.53 x10e6/uL (3.6-5.1); RED CELL DISTRIBUTION WIDTH 13.8 % (11.7-14.4)
--- NOTE | 2019-09-13 18:52 | NUR ---
report given to Wood DAVIS
[2019-09-13 18:56] LABS: INR 1.07; PROTHROMBIN TIME 14.6 seconds (11.9-14.5)
[2019-09-13 18:57] LABS: PARTIAL THROMBOPLASTIN TIME 27.8 seconds (23.8-35.5)
[2019-09-13 19:05] LABS: ALANINE AMINOTRANSFERASE 7 IU/L (0-55); ALBUMIN 3.3 g/dL (3.5-5.0); ALBUMIN/GLOBULIN RATIO 0.8 (0.8-2.0); ALKALINE PHOSPHATASE 76 IU/L (40-150); ANION GAP 12.9 mmol/L (8-16); BLOOD UREA NITROGEN 12 mg/dL (7-26); BUN/CREATININE RATIO 20 (6-25); CALCIUM 9.1 mg/dL (8.4-10.2); CARBON DIOXIDE 24 mmol/L (22-29); CHLORIDE 108 mmol/L (98-107); CREATINE KINASE 25 IU/L (29-168); EST GLOMERULAR FILTRATION RATE > 60 ML/MIN (60-); GLUCOSE 110 mg/dL (74-118); POTASSIUM 3.9 mmol/L (3.5-5.1); SODIUM 141 mmol/L (136-145)
[2019-09-13 22:10] VITALS: BP 135/72
[2019-09-13 22:30] VITALS: BP 135/72
--- NOTE | 2019-09-13 22:40 | NUR ---
PATIENT RECEIVED. PATIENT IS AAOX3, RESP EVEN AND UNLABORED. NO ACUTE DISTRESS NOTED. PATIENT DENIED OF ANY CHEST PAIN OR DISCOMFORT AT THIS TIME. ORIENTED TO ROOM. CALL LIGHT WITHIN REACH. INSTRUCT TO CALL FOR ASSISTANCE. FAMILY AT BED SIDE. BED LOW/LOCKED. CONTINUE TO MONITOR CLOSELY
[2019-09-14] VITALS (8 sets, daily range): BP systolic 108–118; BP diastolic 55–59
[2019-09-14 03:51] LABS: CREATINE KINASE 23 IU/L (29-168)
--- NOTE | 2019-09-14 07:24 | NUR ---
PATIENT IN BED RESTING WITH HEAD OF BED ELEVATED, NO DISTRESS NOTED. BED IN LOWER POSITION, CALL LIGHT AT REACH. FAMILY MEMBER AT BED SIDE.
[2019-09-14] MEDS: ASPIRIN 325 MG TAB EC PO SCH (09:13)
[2019-09-14 12:00] LABS: CREATINE KINASE 22 IU/L (29-168)
--- NOTE | 2019-09-14 14:56 | History and Physical ---
CHIEF COMPLAINT: Shortness of breath, palpitation, and chest pain. PRIMARY CARE PHYSICIAN: Dr. Stanislaw Ramirez. HISTORY OF PRESENT ILLNESS: The patient is a 74-year-old female, no significant medical history. The patient was supposed to have knee replacement. She was supposed to see a golf course equipment operator for cardiac clearance, but the patient was having some chest pressure, atypical pain and some palpitation and shortness of breath. The patient came to the hospital with heart rate in the 50s. Blood pressure is stable. Afebrile. The patient's EKG showed normal sinus rhythm. The patient also has echocardiogram done that showed ejection fraction greater than 65%. The patient is otherwise stable at this time. The patient is pending for Cardiology consultation with Dr. Jesus Triplett. PAST MEDICAL HISTORY: Osteoarthritis. PAST SURGICAL HISTORY: Noncontributory. SOCIAL HISTORY: The patient does not smoke or use alcohol. No regular drug use. ALLERGIES: TO HYDROCODONE. HOME MEDICATIONS: None. PHYSICAL EXAMINATION: VITAL SIGNS: Temperature is 98, blood pressure 135/72, pulse rate 60, and respirations 18. GENERAL: The patient is not in acute distress, awake. HEENT: Normocephalic and atraumatic. She is anicteric. NECK: Supple grossly. PULMONARY: Clear. CARDIOVASCULAR: Regular rate and rhythm. ABDOMEN: Soft. EXTREMITIES: No cyanosis or edema. NEUROLOGIC: No gross focal deficit. LABORATORY DATA: Otherwise unremarkable. Chest x-ray is unremarkable. IMPRESSION: 1. Acute shortness of breath, resolved, etiology unclear. 2. Palpitation, but EKG showed normal sinus rhythm. 3. Obesity. 4. Osteoarthritis. PLAN: CTA of the chest without contrast. Consultation with Dr. Jesus Triplett for possible stress test, 2D echocardiogram. We will monitor the patient closely. MD KAM Guzman/JOSUE /[id number]
--- NOTE | 2019-09-14 15:49 | NUR ---
MD IN TO SEE PATIENT, NEW ORDERS RECEIVED.
[2019-09-14] MEDS ORDERED: SODIUM CHLORIDE 0.9% 50ML 50 ML ONE (16:37)
[2019-09-14] MEDS ORDERED: IOPAMIDOL 370 MG/ML 200 ML INFUS..BTL INJ ONE (16:37)
[2019-09-14] MEDS ORDERED: ENOXAPARIN SOD INJ 40 MG/0.4 ML SYR SC SCH (17:00)
--- NOTE | 2019-09-14 19:45 | Diagnostic Imaging Report ---
EXAM: CT Chest WITH contrast- Pulmonary Embolism Protocol INDICATION: Shortness of breath, immobility, chest pain. COMPARISON: None TECHNIQUE: Chest was scanned utilizing a multidetector helical scanner from the lung apex through the level of the diaphragm after administration of IV contrast. Thin section reconstructions were obtained with special concentration on the pulmonary arteries. Coronal and sagittal reformations were obtained. Pulmonary embolism protocol was performed. IV CONTRAST: 100 cc of Isovue 370 RADIATION DOSE: Total DLP: 492.8 mGy*cm Dose modulation, iterative reconstruction, and/or weight based adjustment of the mA/kV was utilized to reduce the radiation dose to as low as reasonably achievable. COMPLICATIONS: None FINDINGS: LINES/ TUBES: None. PULMONARY ARTERIES: No filling defect is identified within the pulmonary arteries to the segmental level. The subsegmental pulmonary arteries are not well opacified. Main pulmonary artery measures 2.4 cm in diameter. LUNGS AND AIRWAYS: The central airways are patent. There is a 5 mm subpleural nodular opacity in the left upper lobe on series 3, image 57. Nodular/linear atelectasis in the left lower lobe. There is an 8 mm subpleural solid nodule in the left lower lobe on series 3, image 52. There is an 8 mm somewhat triangular nodule in the right upper lobe on series 3, image 30. There is a 4 mm solid nodule in the right upper lobe on image 18 and a 5 mm solid nodule in the right upper lobe on image 45. There is a 5 mm subpleural nodule in the right middle lobe on image 77. PLEURA: The pleural spaces are clear. HEART AND MEDIASTINUM: The thyroid gland is normal. No mediastinal, hilar or axillary lymphadenopathy. The heart is mildly enlarged. No pericardial effusion. UPPER ABDOMEN: Limited contrast-enhanced views of the upper abdomen. Status post cholecystectomy. Mild intrahepatic and extrahepatic biliary ductal dilatation, likely post cholecystectomy reservoir effect. Colonic diverticulosis without evidence of diverticulitis. Multiple surgical clips adjacent to the lower esophagus and proximal stomach near the GE junction. BONES: The visualized bony thorax is within normal limits. SOFT TISSUES: Unremarkable. IMPRESSION: No evidence of pulmonary embolism to level of the segmental pulmonary arteries. Bilateral indeterminate pulmonary nodules, measuring up to 8 mm. These may be infectious/inflammatory, however follow-up is recommended to evaluate for malignancy. Recommend follow-up chest CT in 3 months. Signed by: Dr. Breanna Kam MD on 09/14/2019 7:42 PM
[2019-09-15] VITALS: BP 108/57
[2019-09-15 04:00] VITALS: BP 120/58
[2019-09-15 07:44] VITALS: BP 124/60
[2019-09-15 08:00] VITALS: BP 124/60
[2019-09-15] MEDS: ASPIRIN 325 MG TAB EC PO SCH (09:29)
[2019-09-15 11:29] VITALS: BP 111/58
[2019-09-15] MEDS ORDERED: REGADENOSON 0.4 MG/5 ML SYR IV ONE (11:39)
--- NOTE | 2019-09-15 11:43 | NUR ---
Pt being taken at this time nuclear med department for stress test. Pt is aox4 and able to verbalize needs. Denies any pain at this time. 0 s/ of acute distress noted.
--- NOTE | 2019-09-15 11:56 | Consultation ---
DATE OF CONSULTATION: Cardiology Consult. HISTORY OF PRESENT ILLNESS: The patient Keri Jefferson is a 74-year-old female with no significant medical history, admitted complaining of palpitations associated with chest pressure, shortness of breath, dizziness and nausea that lasted for more than 24 hours. The patient denies any fever or chills or contact with any sick family members. The patient was supposed to see her commercial lines underwriter for cardiac clearance for her knee replacement. However, she had this episode and admitted to the ED with a heart rate on the 50s. PAST MEDICAL HISTORY: Osteoarthritis. PAST SURGICAL HISTORY: Hiatal hernia surgery in 2014. SOCIAL HISTORY: The patient does not smoke or use alcohol or illicit drugs. ALLERGIES: HYDROCODONE. HOME MEDICATION: None, not taking anything. PHYSICAL EXAMINATION: VITAL SIGNS: 124/60 blood pressure, 97.9 temperature, pulse is 56, SpO2 is 96 on room air. Respirations 19. GENERAL APPEARANCE: The patient is well developed, well nourished, in no acute distress. HEENT: Head is normocephalic, atraumatic. Eyes, pupils equal, equally round and reactive to light and accommodation. Sclerae are nonicteric. Ears are normal. Oral cavity, mucosa is moist. Throat is clear. NECK/THYROID: Neck is supple. Full range of motion. No cervical lymphadenopathy. SKIN: Warm and dry. No suspicious lesions. HEART: Regular rate and rhythm. S1 and S2 normal with 2/6 systolic murmur. LUNGS: Clear to auscultation bilaterally. ABDOMEN: Soft, nontender, nondistended. Bowel sounds are present and normal. EXTREMITIES: No edema. No cyanosis. NEUROLOGIC: Nonfocal. Motor strength is normal in upper and lower extremities. Sensory exam is intact. IMPRESSION AND RECOMMENDATION: The patient is a 74-year-old with atypical chest pain with initial EKG, normal sinus rhythm and troponin sets x3 shows no evidence of ischemia. 1. Monitor on telemetry. 2. Echocardiogram - completed with EF of 65%. 3. Nuclear stress test to exclude ischemia. 4. Further recommendation will follow according to patient's clinical course. Thank you for this consultation. We will continue to follow. Dictated by Rosario Saunders, CATIE MD DEBRA [facility]/JOSUE /[id number]
--- NOTE | 2019-09-15 14:36 | NUR ---
Pt returned from [facility] at this time. Pt is aox4 and able to verbalize needs. Denies any pain at this time.
[2019-09-15 15:39] VITALS: BP 119/62
[2019-09-15] MEDS ORDERED: TRAMADOL HCL 50 MG TAB PO NR (18:00)
--- NOTE | 2019-09-15 18:45 | NUR ---
Dr. Triplett was here to see and states stress test was normal and pt can be discharged from his standpoint. Notified Dr. Whiteside and received orders to discharge home. Pt was discharged home at this time. Pt denies any pain at time of discharge. 0 s/s of acute distress noted at time of discharge. Family at the bedside at time of discharge.
--- NOTE | 2019-09-15 22:58 | Operative Report ---
DATE OF PROCEDURE: 09/15/2019 SURGEON: Jesus Triplett MD PROCEDURE: Lexiscan nuclear stress test. INDICATION: Chest pain. TECHNIQUE: The patient was given 11 mCi of Myoview. Resting images were obtained in the horizontal long axis, vertical long axis, and short axis. The patient was then hooked up to the EKG machine and Lexiscan was infused over 15 seconds. During Lexiscan infusion, the patient had no chest pain and no EKG changes. Immediately after Lexiscan infusion, the patient was given 31.3 mCi of Myoview. Stress images were obtained 30 minutes after completion of Lexiscan infusion. Stress images were obtained in the horizontal long axis, vertical long axis, and short axis. RESULTS: 1. The resting EKG demonstrated normal sinus rhythm with a right bundle branch block. 2. There were no EKG changes and no symptoms showing Lexiscan infusion. 3. There was normal perfusion to all segments of the myocardium in both stress and rest. 4. There was normal left ventricular size and function with an ejection fraction of 64%. CONCLUSION: Normal Lexiscan nuclear stress test with no evidence of ischemia. Jesus Triplett MD [facility] /[id number] cc: Jonny Whiteside MD
== END 2019-09-15 18:45 | disposition home or self-care (01) ==
LOC: ER 17:09 → ERHOLD 19:35 → MED/SURG3 22:35
PROVIDERS: ADMIT Internal Medicine; ATTEND Internal Medicine
DX: R07.89 Other chest pain (principal); R06.02 Shortness of breath; R00.2 Palpitations; E66.9 Obesity, unspecified; Z68.28 Body mass index [BMI] 28.0-28.9, adult; M19.90 Unspecified osteoarthritis, unspecified site
CPT/HCPCS: 36415 ×2; 71045; 71260; 78452; 80053; 80061; 82550 ×2; 82553 ×2; 83880; 84484 ×2; 85025; 85610; 85730; 93005; 93017; 93306; 99284; A9502; G0378 ×3; J1650; J2785; Q9967

== ENCOUNTER 2020-01-19 19:05 | Emergency (ER) | payer MEDICARE, OTHER ==
[~2020-01-19] VITALS: Ht 157.5 cm; Wt 70.8 kg
--- NOTE | 2020-01-19 20:24 | Emergency Department Note ---
History of Present Illnes History of Present Illness Chief Complaint: Hypertension History of Present Illness This is a 74 year old female arrives to the ED for generalized malaise weakness and nausea. Patient tested positive for: 19 about 2 weeks ago but states symptoms are not resolving. Daughter states she was concerned because blood pressure was also elevated, on arrival to ER blood pressure was normal . Chief Complaint Comment 74 Y/O FEMALE PT AAOX3 PRESENTS TO THE ER C/O ELEVATED BP; PT'S DAUGHTER STATES SHE TOOK HER BP AT HOME WITH READING 155/95 AND HR 106; PT STATES SHE BEGAN FEELING DIZZY AND NAUSEOUS AT 1815; NO HX OF HTN; CURRENT BP 134/77, HR 89; PT REPORTS "A LITTLE BIT OF DIZZINESS AND NAUSEA"; PT DENIES CP OR SOB; V/S/S; RESP EVEN/UNLABORED; SKIN WARM, DRY AND WNL FOR PT; SPO2 100% RA; EKG PERFORMED AND GIVEN TO ER MD FOR REVIEW. Historian: Patient, Family Member Arrival Mode: Car Onset (how long ago): day(s) Severity: mild Duration (how long): day(s) Timing of current episode: intermittent Progression: unchanged Chronicity: recurrent Context: Reports recent illness Relieving factors: none Associated symptoms: Reports denies other symptoms Past Medical/Family History Physician Review I have reviewed the patient's past medical and family history. Any updates have been documented here. Past Medical History Recent Fever: No Clinical Suspicion of Infectio: No New/Unexplained Change in Ment: No Past Medical History: Osteoarthritis Other Medical History: RA Past Surgical History: Cholecysctectomy, Hysterectomy, Knee Replacement, Hernia Repair Social History Smoking Cessation: Never Smoker Alcohol Use: None Any Illegal Drug Use: No Physically hurt or threatened: No Other Last Tetanus: UNKNOWN Any Pre-Existing Lines (PICC,: No Review of Systems Review of Systems Constitutional: Reports as per HPI EENTM: Reports no symptoms Cardiovascular: Reports no symptoms Respiratory: Reports no symptoms, Reports as per HPI Gastrointestinal: Reports no symptoms Genitourinary: Reports no symptoms Musculoskeletal: Reports no symptoms Integumentary: Reports no symptoms Neurological: Reports no symptoms Psychological: Reports no symptoms Endocrine: Reports no symptoms Hematological/Lymphatic: Reports no symptoms Review of other systems: All other systems negative Physical Exam Related Data Allergies: Coded Allergies: hydrocodone (Verified Allergy, Intermediate, TACHYCARDIA AND RASH, 04/18/19) Triage Vital Signs Vital Signs Date Time Temp Pulse Resp B/P (MAP) Pulse Ox O2 Delivery O2 Flow Rate FiO2 01/19/20 19:40 98.9 89 18 134/77 100 Room Air Vital signs reviewed: Yes Physical Exam CONSTITUTIONAL Constitutional: Present well-developed, Present well-nourished HENT HENT: Present normocephalic, Present atraumatic, Present oropharynx cl ear/moist, Present nose normal HENT L/R: Present left ext ear normal, Present right ext ear normal EYES Eyes: Reports PERRL, Reports conjunctivae normal NECK Neck: Present ROM normal PULMONARY Pulmonary: Present effort normal, Present breath sounds normal CARDIOVASCULAR Cardiovascular: Present regular rhythm, Present heart sounds normal, Present capillary refill normal, Present normal rate GASTROINTESTINAL Abdominal: Present soft, Present nontender, Present bowel sounds normal GENITOURINARY Genitourinary: Present exam deferred SKIN Skin: Present warm, Present dry MUSCULOSKELETAL Musculoskeletal: Present ROM normal NEUROLOGICAL Neurological: Present alert, Present oriented x 3, Present no gross motor or sensory deficits PSYCHOLOGICAL Psychological: Present mood/affect normal, Present judgement normal Assessment & Plan Medical Decision Making MDM 74-year-old well-appearing female arrives to the ED with complaints of cough fever loss of taste and smell. Patient tested positive Covid 19. Patient informed he is positive until proven otherwise. Patient's oxygen saturation remained 99% even on exertion, no evidence of tachypnea or dyspnea noted in the ED. Spoke present length about the importance of sleeping on her stomach and rotating from side to side. Z-Carlos given, signs and symptoms for return discussed. In the light of the Covid pandemic, disaster medicine care was given- patient understands why she was not retested for Covid 19 in the ED, no indications for a chest x-ray at this time given normal oxygen saturation and respiratory status. Pt understands he is at high risk of morbidity and mortality given his age and co-morbidiites. Pt understands he is welcome to return to the ED at anytime for worsening symptoms. Assessment & Plan Final Impression: (1) COVID-19 Depart Disposition: HOME, SELF-CARE Last Vital Signs Date Time Temp Pulse Resp B/P (MAP) Pulse Ox O2 Delivery O2 Flow Rate FiO2 01/19/20 19:40 98.9 89 18 134/77 100 Room Air Home Meds Active Scripts Azithromycin (Z-CARLOS) 250 Mg Tablet, 250 MG PO UD, #1 UDPKT Z-Pack Prov:YUNG RYAN NP 06/19/19 ANTHONY GALAN DO Jan 19, 2020 20:24
== END 2020-01-19 20:05 | disposition home or self-care (01) ==
LOC: ER 19:30
DX: U07.1 COVID-19 (principal)
CPT/HCPCS: 93005; 99282

== ENCOUNTER 2021-06-03 16:32 | Emergency (ER) | payer MEDICARE ==
[~2021-06-03] VITALS: Ht 157.5 cm; Wt 70.8 kg
[2021-06-03 17:32] LABS: BASOPHILS % 0.4 % (0.0-1.0); EOSINOPHILS # (AUTO) 0.1 (0.0-0.4); EOSINOPHILS % 1.6 % (0.0-6.0); HEMATOCRIT 42.4 % (34.2-44.1); HEMOGLOBIN 13.4 g/dL (12.0-16.0); LYMPHOCYTES # (AUTO) 1.3 (1.0-3.2); LYMPHOCYTES % 26.9 % (18.0-39.1); MEAN CORPUSCULAR HEMOGLOBIN 27.1 pg (28-32); MEAN CORPUSCULAR HGB CONC 31.6 g/dL (31-35); MEAN CORPUSCULAR VOLUME 85.7 fL (81-99); MONOCYTES # (AUTO) 0.4 (0.2-0.8); MONOCYTES % 7.5 % (4.4-11.3); NEUTROPHILS # (AUTO) 3.1 (2.1-6.9); NEUTROPHILS % 63.4 % (38.7-80.0); PLATELET COUNT 192 x10e3/uL (140-360); RED BLOOD COUNT 4.95 x10e6/uL (3.6-5.1); RED CELL DISTRIBUTION WIDTH 15.6 % (11.7-14.4)
[2021-06-03 17:48] LABS: CALCIUM 8.7 mg/dL (8.4-10.2); CREATININE, SERUM 0.69 mg/dL (0.57-1.11)
[2021-06-03 18:33] VITALS: BP 132/60
== END 2021-06-03 18:34 | disposition home or self-care (01) ==
LOC: ER 16:45
DX: R20.2 Paresthesia of skin (principal); M06.9 Rheumatoid arthritis, unspecified; Z96.653 Presence of artificial knee joint, bilateral
CPT/HCPCS: 36415; 80048; 85025; 99283

== ENCOUNTER 2021-06-23 00:49 | Emergency (ER) | payer MEDICARE ==
[~2021-06-23] VITALS: Ht 157.5 cm; Wt 70.8 kg
[2021-06-23 01:20] LABS: BASOPHILS % 0.4 % (0.0-1.0); EOSINOPHILS # (AUTO) 0.1 (0.0-0.4); EOSINOPHILS % 2.4 % (0.0-6.0); HEMATOCRIT 40.8 % (34.2-44.1); HEMOGLOBIN 12.7 g/dL (12.0-16.0); LYMPHOCYTES # (AUTO) 1.5 (1.0-3.2); LYMPHOCYTES % 29.1 % (18.0-39.1); MEAN CORPUSCULAR HEMOGLOBIN 27.4 pg (28-32); MEAN CORPUSCULAR HGB CONC 31.1 g/dL (31-35); MEAN CORPUSCULAR VOLUME 88.1 fL (81-99); MONOCYTES # (AUTO) 0.5 (0.2-0.8); MONOCYTES % 9.6 % (4.4-11.3); NEUTROPHILS % 58.1 % (38.7-80.0); PLATELET COUNT 164 x10e3/uL (140-360); RED BLOOD COUNT 4.63 x10e6/uL (3.6-5.1); RED CELL DISTRIBUTION WIDTH 15.5 % (11.7-14.4)
[2021-06-23 01:21] LABS: CLARITY,URINE SL CLOUDY (CLEAR); COLOR,URINE YELLOW (YELLOW); KETONES,URINE NEGATIVE (NEGATIVE); LEUKOCYTE ESTERASE ,URINE SMALL (NEGATIVE); NITRITE,URINE NEGATIVE (NEGATIVE); PROTEIN,URINE DIPSTICK NEGATIVE (NEGATIVE); URINE UROBILINOGEN 0.2 mg/dL (0.2 - 1)
[2021-06-23 01:28] LABS: AMORPHOUS SEDIMENT,URINE MODERATE (FEW); BACTERIA,URINE FEW /HPF; EPITHELIAL CELLS,URINE FEW /LPF; RBC,URINE 0-5 /HPF (0-5)
[2021-06-23 01:40] LABS: ALBUMIN 3.9 g/dL (3.5-5.0); ALBUMIN/GLOBULIN RATIO 1.3 (0.8-2.0); CALCIUM 8.2 mg/dL (8.4-10.2); CREATININE, SERUM 0.91 mg/dL (0.57-1.11)
[2021-06-23] MEDS ORDERED: MECLIZINE HCL12.5 MG PO (02:35)
== END 2021-06-23 03:16 | disposition home or self-care (01) ==
LOC: ER 01:07
DX: R42 Dizziness and giddiness (principal); R94.31 Abnormal electrocardiogram [ECG] [EKG]; M06.9 Rheumatoid arthritis, unspecified; Z96.653 Presence of artificial knee joint, bilateral
CPT/HCPCS: 36415; 70450; 71045; 80053; 81001; 84484; 85025; 93005; 99284

== ENCOUNTER 2021-08-18 12:34 | Emergency (ER) | payer MEDICARE ==
[~2021-08-18] VITALS: Ht 157.5 cm; Wt 70.8 kg
[~2021-08-18 12:34] MED LIST changes: +MECLIZINE HCL12.5 MG PO
[2021-08-18] MEDS ORDERED: SODIUM CHLORIDE 0.9% 1000ML 1,000 ML IV ONE (12:45)
[2021-08-18 13:02] LABS: BASOPHILS % 0.5 % (0.0-1.0); EOSINOPHILS # (AUTO) 0.1 (0.0-0.4); EOSINOPHILS % 2.3 % (0.0-6.0); HEMATOCRIT 42.3 % (34.2-44.1); HEMOGLOBIN 13.2 g/dL (12.0-16.0); LYMPHOCYTES # (AUTO) 1.9 (1.0-3.2); LYMPHOCYTES % 44.4 % (18.0-39.1); MEAN CORPUSCULAR HEMOGLOBIN 28.5 pg (28-32); MEAN CORPUSCULAR HGB CONC 31.2 g/dL (31-35); MEAN CORPUSCULAR VOLUME 91.4 fL (81-99); MONOCYTES # (AUTO) 0.4 (0.2-0.8); MONOCYTES % 9.7 % (4.4-11.3); NEUTROPHILS # (AUTO) 1.9 (2.1-6.9); NEUTROPHILS % 42.9 % (38.7-80.0); PLATELET COUNT 161 x10e3/uL (140-360); RED BLOOD COUNT 4.63 x10e6/uL (3.6-5.1); RED CELL DISTRIBUTION WIDTH 14.2 % (11.7-14.4)
[2021-08-18 13:09] LABS: CLARITY,URINE CLEAR (CLEAR); COLOR,URINE YELLOW (YELLOW); KETONES,URINE NEGATIVE (NEGATIVE); LEUKOCYTE ESTERASE ,URINE TRACE (NEGATIVE); NITRITE,URINE NEGATIVE (NEGATIVE); PROTEIN,URINE DIPSTICK NEGATIVE (NEGATIVE); URINE UROBILINOGEN 0.2 mg/dL (0.2 - 1)
[2021-08-18 13:11] LABS: INR 1.04; PROTHROMBIN TIME 14.3 seconds (11.9-14.5)
[2021-08-18 13:12] LABS: BACTERIA,URINE MODERATE /HPF; EPITHELIAL CELLS,URINE FEW /LPF; RBC,URINE 0-5 /HPF (0-5)
[2021-08-18 13:21] LABS: ALBUMIN 3.8 g/dL (3.5-5.0); ALBUMIN/GLOBULIN RATIO 1.3 (0.8-2.0); ANION GAP 11.2 mmol/L (8-16); CALCIUM 8.9 mg/dL (8.4-10.2); CREATININE, SERUM 0.66 mg/dL (0.57-1.11); POTASSIUM 4.2 mmol/L (3.5-5.1)
[2021-08-18] MEDS ORDERED: SODIUM CHLORIDE 0.9% 50ML 50 ML ONE (14:28)
[2021-08-18] MEDS ORDERED: IOPAMIDOL 370 MG/ML 200 ML INFUS..BTL INJ ONE (14:28)
[2021-08-18] MEDS ORDERED: ONDANSETRON ODT4 MG PO (14:44)
[2021-08-18] MEDS ORDERED: PROTONIX20 MG PO (14:44)
[2021-08-18 15:00] VITALS: BP 134/53
== END 2021-08-18 15:03 | disposition home or self-care (01) ==
LOC: ER 12:41
DX: K92.2 Gastrointestinal hemorrhage, unspecified (principal); I10 Essential (primary) hypertension; M06.9 Rheumatoid arthritis, unspecified; Z96.653 Presence of artificial knee joint, bilateral
CPT/HCPCS: 36415; 74177; 80053; 81001; 82270; 85025; 85610; 99284; J7030; Q9967

== ENCOUNTER 2022-02-16 17:18 | Observation (INO) | payer MEDICARE ==
[~2022-02-16] VITALS: Ht 165.1 cm; Wt 75.3 kg
[~2022-02-16 17:18] MED LIST changes: +ONDANSETRON ODT4 MG PO; +PROTONIX20 MG PO
[2022-02-16] MEDS ORDERED: ASPIRIN 81 MG CHEW TAB PO ONE ×2 (17:45→19:15)
[2022-02-16] MEDS ORDERED: SODIUM CHLORIDE FLUSH 10 ML SYR IV PRN (17:45)
[2022-02-16] MEDS ORDERED: SODIUM CHLORIDE 0.9% 500ML 500 ML IV ONE (17:45)
[2022-02-16 18:05] LABS: BASOPHILS % 0.2 % (0.0-1.0); EOSINOPHILS # (AUTO) 0.1 (0.0-0.4); HEMATOCRIT 40.5 % (34.2-44.1); HEMOGLOBIN 12.8 g/dL (12.0-16.0); LYMPHOCYTES # (AUTO) 1.1 (1.0-3.2); LYMPHOCYTES % 20.5 % (18.0-39.1); MEAN CORPUSCULAR HEMOGLOBIN 29.2 pg (28-32); MEAN CORPUSCULAR HGB CONC 31.6 g/dL (31-35); MEAN CORPUSCULAR VOLUME 92.5 fL (81-99); MONOCYTES # (AUTO) 0.4 (0.2-0.8); MONOCYTES % 8.3 % (4.4-11.3); NEUTROPHILS # (AUTO) 3.6 (2.1-6.9); NEUTROPHILS % 69.6 % (38.7-80.0); PLATELET COUNT 137 x10e3/uL (140-360); RED BLOOD COUNT 4.38 x10e6/uL (3.6-5.1); RED CELL DISTRIBUTION WIDTH 13.1 % (11.7-14.4)
[2022-02-16 18:17] LABS: ALBUMIN 3.9 g/dL (3.5-5.0); ALBUMIN/GLOBULIN RATIO 1.4 (0.8-2.0); CALCIUM 8.4 mg/dL (8.4-10.2); CREATININE, SERUM 0.65 mg/dL (0.57-1.11)
[2022-02-16] MEDS ORDERED: SODIUM CHLORIDE FLUSH 10 ML SYR INJ PRN (19:15)
[2022-02-16 21:35] LABS: CREATINE KINASE MB 1.3 ng/mL (0-5.0)
[2022-02-17 02:46] LABS: BASOPHILS % 0.2 % (0.0-1.0); EOSINOPHILS # (AUTO) 0.1 (0.0-0.4); EOSINOPHILS % 2.5 % (0.0-6.0); HEMATOCRIT 36.9 % (34.2-44.1); HEMOGLOBIN 11.8 g/dL (12.0-16.0); LYMPHOCYTES # (AUTO) 1.3 (1.0-3.2); LYMPHOCYTES % 32.6 % (18.0-39.1); MEAN CORPUSCULAR HEMOGLOBIN 29.4 pg (28-32); MEAN CORPUSCULAR VOLUME 91.8 fL (81-99); MONOCYTES # (AUTO) 0.4 (0.2-0.8); MONOCYTES % 9.9 % (4.4-11.3); NEUTROPHILS # (AUTO) 2.2 (2.1-6.9); NEUTROPHILS % 54.8 % (38.7-80.0); PLATELET COUNT 134 x10e3/uL (140-360); RED BLOOD COUNT 4.02 x10e6/uL (3.6-5.1); RED CELL DISTRIBUTION WIDTH 13.1 % (11.7-14.4)
[2022-02-17 03:09] LABS: CREATINE KINASE MB 0.9 ng/mL (0-5.0)
[2022-02-17 03:10] LABS: ALBUMIN 3.2 g/dL (3.5-5.0); ALBUMIN/GLOBULIN RATIO 1.3 (0.8-2.0); ANION GAP 11.5 mmol/L (8-16); CALCIUM 7.9 mg/dL (8.4-10.2); CREATININE, SERUM 0.58 mg/dL (0.57-1.11); POTASSIUM 3.5 mmol/L (3.5-5.1)
[2022-02-17] MEDS ORDERED: GUAIFENESIN/DEXTROMETHORPHAN LIQD 5 ML UDC PO PRN (03:30)
[2022-02-17] MEDS ORDERED: MELATONIN 3 MG TAB PO PRN (03:30)
[2022-02-17] MEDS ORDERED: ONDANSETRON HCL INJ 2MG/ML 2ML 2 MG/ML VIAL IV PRN (03:30)
[2022-02-17] MEDS ORDERED: MECLIZINE HCL 12.5 MG TAB PO PRN (03:30)
[2022-02-17] MEDS ORDERED: HYDRALAZINE HCL 20 MG/ML VIAL IV PRN (03:30)
[2022-02-17] MEDS ORDERED: DOCUSATE SODIUM 100 MG CAP PO PRN (03:30)
[2022-02-17] MEDS ORDERED: ACETAMINOPHEN 325 MG TAB PO PRN (03:30)
[2022-02-17 03:45] LABS: CHOL/HDL RATIO 2.7 (3.0-3.6)
[2022-02-17 04:04] LABS: THYROID STIMULATING HORMONE 2.082 uIU/mL (0.350-4.940)
[2022-02-17] MEDS: ONDANSETRON HCL 4 MG ORAL DISINTEGRATING TAB PO SCH ×4 (05:53→23:55)
[2022-02-17 07:45] VITALS: BP 172/73
[2022-02-17 08:22] VITALS: BP 172/73
[2022-02-17] MEDS ORDERED: KEVZARA200 MG/1.2 SQ (08:31)
[2022-02-17] MEDS: MULTIVITAMINS/MINERALS TAB PO SCH (10:00)
[2022-02-17] MEDS: ASPIRIN 81 MG ENTERIC COATED PO SCH (10:00)
[2022-02-17 10:19] LABS: CREATINE KINASE MB 0.8 ng/mL (0-5.0)
[2022-02-17 11:43] VITALS: BP 128/64
[2022-02-17 16:00] VITALS: BP 124/68
[2022-02-17 19:45] VITALS: BP 134/60
[2022-02-17 20:00] VITALS: BP 134/60
[2022-02-18] VITALS: BP 115/59
[2022-02-18 04:00] VITALS: BP 123/50
[2022-02-18] MEDS: ONDANSETRON HCL 4 MG ORAL DISINTEGRATING TAB PO SCH ×2 (06:00→12:00)
[2022-02-18 07:45] VITALS: BP 123/59
[2022-02-18] MEDS: MULTIVITAMINS/MINERALS TAB PO SCH (09:59)
[2022-02-18] MEDS: ASPIRIN 81 MG ENTERIC COATED PO SCH (09:59)
[2022-02-18 10:00] VITALS: BP 123/59
[2022-02-18 11:58] VITALS: BP 133/55
[2022-02-18] MEDS ORDERED: AMOXICILLIN500 MG PO (14:35)
== END 2022-02-18 14:22 | disposition home health service (06) ==
LOC: ER 17:22 → ERHOLD 19:36 → MED/SURG2 02-17 07:28
PROVIDERS: ADMIT Internal Medicine; ATTEND Internal Medicine
DX: R55 Syncope and collapse (principal); I45.10 Unspecified right bundle-branch block; Z20.822 Contact with and (suspected) exposure to COVID-19; Z88.5 Allergy status to narcotic agent; E88.09 Other disorders of plasma-protein metabolism, not elsewhere classified; R03.0 Elevated blood-pressure reading, without diagnosis of hypertension; M17.0 Bilateral primary osteoarthritis of knee; Z96.653 Presence of artificial knee joint, bilateral
CPT/HCPCS: 0223U; 36415 ×2; 71045; 80053 ×2; 80061; 82550 ×2; 82553 ×2; 84443; 84484 ×2; 85025 ×2; 93005 ×2; 93306; 93880; 94760; 97116 ×2; 97161; 97530; 99284; G0378 ×3; J7040; Q0162; J2405

== ENCOUNTER 2022-04-11 00:08 | Emergency (ER) | payer MEDICARE ==
[~2022-04-11] VITALS: Ht 165.1 cm; Wt 75.3 kg
[~2022-04-11 00:08] MED LIST changes: +AMOXICILLIN500 MG PO; +KEVZARA200 MG/1.2 SQ
[2022-04-11 00:26] LABS: BASOPHILS % 0.6 % (0.0-1.0); EOSINOPHILS # (AUTO) 0.1 (0.0-0.4); EOSINOPHILS % 2.3 % (0.0-6.0); HEMATOCRIT 43.8 % (34.2-44.1); HEMOGLOBIN 13.9 g/dL (12.0-16.0); LYMPHOCYTES # (AUTO) 1.4 (1.0-3.2); LYMPHOCYTES % 41.2 % (18.0-39.1); MEAN CORPUSCULAR HEMOGLOBIN 29.3 pg (28-32); MEAN CORPUSCULAR HGB CONC 31.7 g/dL (31-35); MEAN CORPUSCULAR VOLUME 92.2 fL (81-99); MONOCYTES # (AUTO) 0.3 (0.2-0.8); MONOCYTES % 9.3 % (4.4-11.3); NEUTROPHILS # (AUTO) 1.6 (2.1-6.9); NEUTROPHILS % 46.3 % (38.7-80.0); PLATELET COUNT 142 x10e3/uL (140-360); RED BLOOD COUNT 4.75 x10e6/uL (3.6-5.1); RED CELL DISTRIBUTION WIDTH 12.3 % (11.7-14.4)
[2022-04-11 00:46] LABS: ALANINE AMINOTRANSFERASE 16 IU/L (0-55); ALBUMIN 4.2 g/dL (3.5-5.0); ALBUMIN/GLOBULIN RATIO 1.6 (0.8-2.0); ALKALINE PHOSPHATASE 77 IU/L (40-150); BLOOD UREA NITROGEN 17 mg/dL (7-26); BUN/CREATININE RATIO 22 (6-25); CALCIUM 8.9 mg/dL (8.4-10.2); CARBON DIOXIDE 25 mmol/L (22-29); CHLORIDE 105 mmol/L (98-107); CREATINE KINASE 69 IU/L (29-168); CREATININE, SERUM 0.79 mg/dL (0.57-1.11); GLUCOSE 139 mg/dL (74-118); SODIUM 139 mmol/L (136-145)
[2022-04-11] MEDS ORDERED: IOPAMIDOL 370 MG/ML 100 ML INFUS..BTL INJ ONE (01:20)
[2022-04-11] MEDS ORDERED: AZITHROMYCIN250 MG PO (01:49)
[2022-04-11] MEDS ORDERED: VENTOLIN HFA18 GM INH (01:49)
[2022-04-11] MEDS ORDERED: PREDNISONE20 MG PO (01:49)
[2022-04-11 02:08] VITALS: BP 129/84
== END 2022-04-11 02:00 | disposition home or self-care (01) ==
LOC: ER 00:15
DX: R07.9 Chest pain, unspecified (principal); Z88.5 Allergy status to narcotic agent
CPT/HCPCS: 36415; 71260; 80053; 82550; 82553; 83880; 84484; 85025; 85379; 93005; 99284; Q9967

== ENCOUNTER 2024-07-27 15:31 | Emergency (ER) | payer MEDICARE ==
[~2024-07-27] VITALS: Ht 165.1 cm; Wt 75.3 kg
[~2024-07-27 15:31] MED LIST changes: +ANTIVERT25 M1 PO; +DICYCLOMINE HCL20 MG PO; +ONDANSETRON ODT4 MG SL; +PREDNISONE20 MG PO; +VENTOLIN HFA18 GM INH
[2024-07-27 15:59] VITALS: PULSE 51; RESP 18; TEMP 98.1
[2024-07-27 16:36] LABS: BASOPHILS % 0.2 % (0.0-1.0); EOSINOPHILS # (AUTO) 0.2 (0.0-0.4); EOSINOPHILS % 2.9 % (0.0-6.0); HEMATOCRIT 44.4 % (34.2-44.1); HEMOGLOBIN 13.6 g/dL (12.0-16.0); LYMPHOCYTES # (AUTO) 1.1 (1.0-3.2); LYMPHOCYTES % 19.4 % (18.0-39.1); MEAN CORPUSCULAR HEMOGLOBIN 29.6 pg (28-32); MEAN CORPUSCULAR HGB CONC 30.6 g/dL (31-35); MEAN CORPUSCULAR VOLUME 96.5 fL (81-99); MONOCYTES # (AUTO) 0.4 (0.2-0.8); NEUTROPHILS # (AUTO) 3.8 (2.1-6.9); NEUTROPHILS % 69.3 % (38.7-80.0); PLATELET COUNT 139 x10e3/uL (140-360); RED CELL DISTRIBUTION WIDTH 12.5 % (11.7-14.4); WHITE BLOOD COUNT 5.51 x10e3/uL (4.8-10.8)
[2024-07-27 17:11] LABS: ALBUMIN 3.6 g/dL (3.5-5.0); ALBUMIN/GLOBULIN RATIO 1.4 (0.8-2.0); ANION GAP 14.7 mmol/L (8-16); BILIRUBIN,TOTAL 0.7 mg/dL (0.2-1.2); CALCIUM 8.6 mg/dL (8.4-10.2); CREATININE, SERUM 0.65 mg/dL (0.57-1.11); POTASSIUM 3.7 mmol/L (3.5-5.1); TOTAL PROTEIN 6.2 g/dL (6.5-8.1)
[2024-07-27] MEDS ORDERED: IOPAMIDOL 370 MG/ML 100 ML INFUS..BTL INJ ONE (17:39)
[2024-07-27] MEDS ORDERED: SODIUM CHLORIDE 0.9% 1000ML 1,000 ML ONE (19:01)
[2024-07-27] MEDS ORDERED: ONDANSETRON HCL INJ 2MG/ML 2ML 2 MG/ML VIAL ONE (19:01)
[2024-07-27] MEDS ORDERED: DICYCLOMINE HCL 20 MG TAB ONE (19:05)
[2024-07-27] MEDS: DICYCLOMINE HCL 20 MG TAB PO ONE (19:12)
[2024-07-27] MEDS: SODIUM CHLORIDE 0.9% 1000ML 1,000 ML IV ONE (19:12)
[2024-07-27] MEDS: ONDANSETRON HCL INJ 2MG/ML 2ML 2 MG/ML VIAL IV STA (19:13)
[2024-07-27 20:10] VITALS: BP 143/84; PULSE 71; RESP 17; TEMP 98.3; O2SAT 98
== END 2024-07-27 19:55 | disposition short-term general hospital (02) ==
LOC: ER 15:59
DX: R10.30 Lower abdominal pain, unspecified (principal); K57.20 Diverticulitis of large intestine with perforation and abscess without bleeding; R11.0 Nausea; K76.0 Fatty (change of) liver, not elsewhere classified; I10 Essential (primary) hypertension; M06.9 Rheumatoid arthritis, unspecified; K21.9 Gastro-esophageal reflux disease without esophagitis; M19.09 Primary osteoarthritis, other specified site
CPT/HCPCS: 36415; 74177; 80053; 83690; 85025; 99284; J2405; J2543; J7030; Q9967